=== PATIENT | female | born 1965 | race African-American/Black ===

== ENCOUNTER 2018-08-31 23:47 | Emergency (ER) | payer BC ==
[2018-09-01] MEDS ORDERED: METOCLOPRAMIDE HCL INJ/PF 10 MG/2 ML SDV IV ONE (01:01)
--- NOTE | 2018-09-01 01:01 | ER Document Report ---
ED Headache - General Chief Complaint: Headache Stated Complaint: HEADACHE Time Seen by Provider: 09/01/18 00:49 Notes: Patient is a 53-year-old female that comes to the emergency department for chief complaint of a headache. She states that the headache started at 10 PM, she states it is a sharp pain in the left side of her head, she has photophobia, nausea, and she vomited once. She denies injury. She denies history of migraines, frequent headaches, or history of the same. She denies fever or chills. She states headache was bad at first and intermittently improves and then worsens. Past medical history of hyperlipidemia and she takes dietary pills but these are not new. She smokes, she denies alcohol, denies recreational drugs. Denies any medical history otherwise. - Related Data Allergies/Adverse Reactions: No Known Allergies Allergy (Verified 08/31/18 23:50) Past Medical History - General Information source: Patient - Social History Smoking Status: Current Every Day Smoker Frequency of alcohol use: None Lives with: Family Family History: Reviewed & Not Pertinent Patient has suicidal ideation: No Patient has homicidal ideation: No - Past Medical History Cardiac Medical History: Reports: Hx Hypercholesterolemia Denies: Hx Hypertension Pulmonary Medical History: Reports: Hx COPD Renal/ Medical History: Denies: Hx Peritoneal Dialysis - Immunizations Immunizations up to date: Yes Hx Diphtheria, Pertussis, Tetanus Vaccination: Yes Review of Systems - Review of Systems Constitutional: No symptoms reported EENT: No symptoms reported Cardiovascular: No symptoms reported Respiratory: No symptoms reported Gastrointestinal: See HPI Genitourinary: No symptoms reported Female Genitourinary: No symptoms reported Musculoskeletal: No symptoms reported Skin: No symptoms reported Hematologic/Lymphatic: No symptoms reported Neurological/Psychological: See HPI Physical Exam - Vital signs Vitals: Temp Pulse Resp BP Pulse Ox 98.1 F 80 18 132/91 H 98 08/31/18 23:48 08/31/18 23:48 08/31/18 23:48 08/31/18 23:48 08/31/18 23:48 - Notes Notes: GENERAL: Patient squinting her eyes, responds slightly sluggishly, appears to be mildly uncomfortable. No severe distress. HEAD: Normocephalic, atraumatic. EYES: Pupils equal, round, and reactive to light. Mild photophobia. Extraocular movements intact. ENT: Oral mucosa moist, tongue midline. Oropharynx unremarkable. Airway patent. Nares patent, no nasal septal hematoma, TM's intact. NECK: Full range of motion. Supple. Trachea midline. LUNGS: Clear to auscultation bilaterally, no wheezes, rales, or rhonchi. No respiratory distress. HEART: Regular rate and rhythm. No murmur ABDOMEN: Soft, non-tender. Non-distended. Bowel sounds present in all 4 quadrants. GENITOURINARY: Deferred EXTREMITIES: Moves all 4 extremities spontaneously. No edema, normal radial and dorsalis pedis pulses bilaterally. No cyanosis. BACK: no cervical, thoracic, lumbar midline tenderness. No saddle anesthesia, normal distal neurovascular exam. NEUROLOGICAL: Alert and oriented x3. Normal speech. [cranial nerves II through XII grossly intact]. PSYCH: Normal affect, normal mood. SKIN: Warm, dry, normal turgor. No rashes or lesions noted. Course - Re-evaluation Re-evalutation: Because patient appeared uncomfortable, had a severe headache that prompted an emergency department visit, and she has no history of headaches, despite patient having typical migraine symptoms after discussion with patient decision was made to proceed with CAT scan to rule out subarachnoid hemorrhage. Patient is within the 6-hour window. CAT scan of the head unremarkable. No acute findings. Patient does not have any neurological deficits. Patient was given Reglan IV. On reevaluation patient sleeping, easily aroused. Headache is completely resolved. Asking to go home. Because of complete resolution of symptoms I have low suspicion of sinus venous thrombosis, intracranial hemorrhage, or meningitis. No nuchal rigidity or fever. Discussed follow-up and return precautions. Patient and significant other state understanding and agreement. - Vital Signs Vital signs: Temp Pulse Resp BP Pulse Ox 98.1 F 83 16 104/64 100 09/01/18 02:24 09/01/18 02:24 09/01/18 02:24 09/01/18 02:24 09/01/18 02:24 Discharge - Discharge Clinical Impression: Headache Qualifiers: Headache type: unspecified Headache chronicity pattern: acute headache Intractability: not intractable Qualified Code(s): R51 - Headache Condition: Stable Disposition: HOME, SELF-CARE Additional Instructions: Your symptoms and response to treatment are most consistent with a migraine. Your cat scan did not show any concerning findings. Rest, take Tylenol or ibuprofen for headaches, stay hydrated. Follow up with Primary Care for additional evaluation and management. Return for any concerning symptoms - severe returned headache, vomiting, fever, numbness, visual changes, or any other concerning symptoms. Forms: Return to Work, Treatment of Relative/Child
--- NOTE | 2018-09-01 02:08 | RADIOLOGY REPORT (SQ) ---
EXAM DESCRIPTION: CT HEAD WITHOUT IV CONTRAST COMPLETED DATE/TME: 09/01/2018 00:56 CLINICAL HISTORY: 53 years, Female, new onset severe headache, vomiting COMPARISON: None. TECHNIQUE: 203 Images stored on PACS. All CT scanners at this facility use dose modulation, iterative reconstruction, and/or weight based dosing when appropriate to reduce radiation dose to as low as reasonably achievable (ALARA). [facility]: Dose Right [facility]: CareDose [facility]: Dose Right [facility]: Teradose 4D [facility]: Smart Technologies LIMITATIONS: None. FINDINGS: Globes are intact. Paranasal sinuses and mastoid air cells are unremarkable. No displaced or depressed skull fracture. No intra or extra-axial hemorrhage. CT is limited for evaluation of acute infarct. No CT evidence for large or territorial acute infarct. No mass or midline shift. IMPRESSION: Negative exam TECHNICAL DOCUMENTATION: Quality ID # [id number]: Final reports with documentation of one or more dose reduction techniques (e.g., Automated exposure control, adjustment of the mA and/or kV according to patient size, use of iterative reconstruction technique) copyright 2011 [employer]- All Rights Reserved
[2018-09-01 02:25] VITALS: BP 104/64
== END 2018-09-01 02:53 | disposition home or self-care (01) ==
LOC: ER 23:47
DX: R51 Headache (principal); F17.200 Nicotine dependence, unspecified, uncomplicated; J44.9 Chronic obstructive pulmonary disease, unspecified
CPT/HCPCS: 99284; 96374; 70450; J2765

== ENCOUNTER → 2018-10-06 | Outpatient (CLI) | payer BC ==
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
== END ==
LOC: EDSTATUS 09:02 → WI 11:09
PROVIDERS: ATTEND Internal Medicine Medical Oncology
DX: N63.10 Unspecified lump in the right breast, unspecified quadrant (principal)

== ENCOUNTER 2018-10-08 05:24 | Emergency (ER) | payer OTHER, BC ==
[2018-10-08] MEDS ORDERED: LIDOCAINE 5% (700 MG) TRANSDERMAL ADH..PATCH TP ONE (06:59)
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
[2018-10-08 08:37] VITALS: BP 147/106
== END 2018-10-08 08:37 | disposition home or self-care (01) ==
LOC: ER 05:24
DX: S16.1XXA Strain of muscle, fascia and tendon at neck level, initial encounter (principal); M25.511 Pain in right shoulder; V43.62XA Car passenger injured in collision with other type car in traffic accident, initial encounter; F17.200 Nicotine dependence, unspecified, uncomplicated; J44.9 Chronic obstructive pulmonary disease, unspecified; M54.2 Cervicalgia; M54.9 Dorsalgia, unspecified; G89.29 Other chronic pain; Z79.891 Long term (current) use of opiate analgesic; Z79.899 Other long term (current) drug therapy
CPT/HCPCS: 72050; 99283

== ENCOUNTER 2018-11-01 07:32 | Day surgery (SDC) | payer BC, OTHER ==
[2018-10-22 11:47] LABS: APPEARANCE,URINE CLEAR; BILIRUBIN,URINE NEGATIVE (NEGATIVE); COLOR,URINE YELLOW; GLUCOSE, URINE NEGATIVE (NEGATIVE); KETONES,URINE NEGATIVE (NEGATIVE); LEUKOCYTE ESTERASE,URINE NEGATIVE (NEGATIVE); NITRITE,URINE NEGATIVE (NEGATIVE); PROTEIN,URINE NEGATIVE (NEGATIVE); URINE SPECIFIC GRAVITY 1.019; UROBILINOGEN,URINE NEGATIVE mg/dL (<2.0)
[2018-10-22 12:00] LABS: HEMATOCRIT 41.8 % (36.0-47.0); HEMOGLOBIN 13.6 g/dL (12.0-15.5); MEAN CORPUSCULAR HEMOGLOBIN 23.7 pg (27.0-33.4); MEAN CORPUSCULAR HGB CONC 32.6 g/dL (32.0-36.0); MEAN CORPUSCULAR VOLUME 73 fl (80-97); PLATELET COUNT 511 10^3/uL (150-450); RED BLOOD COUNT 5.75 10^6/uL (3.72-5.28); RED CELL DISTRIBUTION WIDTH 18.3 % (11.5-14.0); WHITE BLOOD COUNT 23.7 10^3/uL (4.0-10.5)
--- NOTE | 2018-10-22 12:07 | RADIOLOGY REPORT (SQ) ---
EXAM DESCRIPTION: CHEST PA/LATERAL COMPLETED DATE/TIME: 10/22/2018 11:48 am REASON FOR STUDY: PRE-OP COMPARISON: None. EXAM PARAMETERS: NUMBER OF VIEWS: two views TECHNIQUE: Digital Frontal and Lateral radiographic views of the chest acquired. RADIATION DOSE: NA LIMITATIONS: none FINDINGS: LUNGS AND PLEURA: Bibasilar linear bandlike scarring is present. No fluffy alveolar infiltrates worrisome for pulmonary edema or pneumonia. No pleural effusions. No pneumothorax. MEDIASTINUM AND HILAR STRUCTURES: No masses or contour abnormalities. HEART AND VASCULAR STRUCTURES: Heart normal size. No evidence for failure. BONES: No acute findings. HARDWARE: None in the chest. OTHER: No other significant finding. IMPRESSION: Bandlike bibasilar scarring or atelectasis TECHNICAL DOCUMENTATION: JOB ID: [id number] [employer]- All Rights Reserved Reading location - IP/workstation name: [email or web address]
[2018-10-22 12:24] LABS: ANION GAP 12 (5-19); BLOOD UREA NITROGEN 14 mg/dL (7-20); CALCIUM 10.3 mg/dL (8.4-10.2); CARBON DIOXIDE 27 mmol/L (22-30); CHLORIDE 106 mmol/L (98-107); GLUCOSE 82 mg/dL (75-110); POTASSIUM 4.3 mmol/L (3.6-5.0); SODIUM 145.2 mmol/L (137-145)
--- NOTE | 2018-10-22 22:02 | EKG REPORT ---
SEVERITY:- NORMAL ECG - SINUS RHYTHM : Confirmed by: Sade Jimenes 22-Oct-2018 22:01:41
[~2018-11-01 07:32] MED LIST: BUPIVACAINE HCL 0.25 % INJ/PF (2.5 MG/1 ML) 30 ML VIAL ONE; CEFAZOLIN 1 GM/D5W RTU 1 GM/50 ML RTUPB IV ONE; CEFAZOLIN 2 GM/D5W RTU 2 GM/50 ML RTUPB IV PRN; LACTATED RINGERS 1000 ML IV PRN; LIDOCAINE 0.5% INJ-PF (5 MG/ML) 50 ML SDV SUBCUT PRN; LIDOCAINE 1%/EPINEPHRINE INJ 20 ML VIAL ONE
[2018-11-01] MEDS ORDERED: ACETAMINOPHEN 1,000 MG/100 ML RTUPB IV ONE (08:04)
[2018-11-01] MEDS ORDERED: FENTANYL CITRATE INJ/PF 100 MCG/2 ML AMPUL ONE (08:04)
[2018-11-01] MEDS ORDERED: LIDOCAINE 2% INJ-PF (100 MG/5 ML) SYRINGE ONE (08:04)
[2018-11-01] MEDS ORDERED: PROPOFOL INJ 200 MG/20 ML VIAL IV ONE (08:04)
[2018-11-01] MEDS ORDERED: MIDAZOLAM 2 MG/2 ML INJ ONE (08:04)
[2018-11-01] MEDS ORDERED: ONDANSETRON HCL INJ/PF 4 MG/2 ML SDV ONE (08:04)
[2018-11-01] MEDS ORDERED: DIPHENHYDRAMINE HCL 50 MG/ML VIAL IV PRN (09:03)
[2018-11-01] MEDS ORDERED: PROMETHAZINE HCL INJ 25 MG/1 ML VIAL IV PRN ×2 (09:03)
[2018-11-01] MEDS ORDERED: ONDANSETRON HCL INJ/PF 4 MG/2 ML SDV IV PRN (09:03)
[2018-11-01] MEDS ORDERED: MEPERIDINE HCL/PF INJ 25 MG/1 ML DISP.SYRIN IV PRN (09:03)
[2018-11-01] MEDS ORDERED: FENTANYL CITRATE INJ/PF 100 MCG/2 ML AMPUL IV PRN ×3 (09:03)
--- NOTE | 2018-11-01 09:23 | Discharge Summary ---
Discharge Summary (SDC) - Discharge Final Diagnosis: Left dorsal wrist ganglion Date of Surgery: 11/01/18 Discharge Date: 11/01/18 Condition: Good Prescriptions: Oxycodone HCl/Acetaminophen [Percocet 5-325 mg Tablet] 1 tab PO Q6 PRN #25 tab PRN Reason: Referrals: BRAYDEN MANN MD [Primary Care Provider] - Discharge Diet: As Tolerated, Regular Respiratory Treatments at Home: Deep Breathing/Coughing Discharge Activity: Balance Activity w/Rest, No tub bath Home Care Assistance: None Needed Report the Following to Your Physician Immediately: Shortness of Breath, Fever over 101 Degrees, Drainage-Foul Smelling
--- NOTE | 2018-11-01 09:25 | Operative Report ---
Operative Report DATE OF SURGERY: 11/01/18 PREOPERATIVE DIAGNOSIS: Left dorsal wrist ganglion OPERATION: Excision left dorsal wrist ganglion SURGEON: DEANGELO PERAZA ANESTHESIA: LMAC TISSUE REMOVED OR ALTERED: Ganglion to pathology ESTIMATED BLOOD LOSS: Minimal PROCEDURE: The patient supine on the operative table left upper extremities prepped and draped in sterile fashion. The skin overlying the fourth dorsal extensor compartment at the radiocarpal joint is insufflated with combination of Marcaine, Xylocaine, and epinephrine. Subsequently a 1-1/2 cm transverse inci aline was made over the dorsal ganglion and blunt ICU dissection was used to carry the incision down to the radiocarpal joint. The ganglion is transected at its base. Wound is irrigated. Hemostasis obtained with bipolar cautery. The wound is then closed using interrupted Monocryl suture followed by Steri-Strips and Dermabond. A sterile compressive dressing is applied and the patient's return to the PACU
[2018-11-01] MEDS ORDERED: OXYCODONE-ACETAMINOPHEN 5-325 MG TABLET PO PRN (10:22)
[2018-11-01 11:44] VITALS: BP 120/89
== END 2018-11-01 11:35 | disposition home or self-care (01) ==
LOC: OROUT 07:32
PROVIDERS: ATTEND Orthopaedic Surgery
DX: M67.432 Ganglion, left wrist (principal); E78.00 Pure hypercholesterolemia, unspecified; J45.909 Unspecified asthma, uncomplicated; Z79.891 Long term (current) use of opiate analgesic; Z01.818 Encounter for other preprocedural examination
CPT/HCPCS: 93010; 93005; 36415; 85027; 81025; 80048; 81001; 88304 ×2; 71046; 25111; J2250; J0690; J3010; J3490; J2001; J2405; J2704; J0131; 1810

== ENCOUNTER 2019-09-17 15:22 | Emergency (ER) | payer BC, OTHER ==
[2019-09-17] MEDS ORDERED: PREDNISONE 20 MG TABLET PO ONE (16:40)
[2019-09-17] MEDS ORDERED: IPRATROPIUM/ALBUTEROL 0.5-2.5 MG/3 ML AMPUL NEB ONE ×2 (16:40→19:54)
--- NOTE | 2019-09-17 16:43 | ER Document Report ---
ED Medical Screen (RME) - General Chief Complaint: Shortness Of Breath Stated Complaint: SHORT OF BREATH,CONGESTION Time Seen by Provider: 09/17/19 16:37 Primary Care Provider: BRAYDEN MANN MD [Primary Care Provider] - Follow up as needed TRAVEL OUTSIDE OF THE [place] IN LAST 30 DAYS: No - HPI Notes: 09/17/19 16:41 54 year old female with history of tobacco use to the ER with C/O one week of cough,chest tightness, wheezing. States she can hardly catch her breath. Denies fevers, endorses chills. Denies sweating, nausea, vomiting. Admits to some neck pain. Denies sore throat or ear pain. Denies sick contact. I have performed a brief medical screening exam on the patient and determined that they will need further management by mainside provider. I have placed ini tial orders to expedite patient's care. - Related Data Allergies/Adverse Reactions: No Known Allergies Allergy (Verified 09/17/19 16:37) Past Medical History - Past Medical History Cardiac Medical History: Reports: Hx Heart Attack - August 2016, Hx Hypercholesterolemia, Hx Hypertension Denies: Hx Coronary Artery Disease Pulmonary Medical History: Reports: Hx Asthma, Hx COPD Denies: Hx Bronchitis, Hx Pneumonia Neurological Medical History: Denies: Hx Cerebrovascular Accident, Hx Seizures Renal/ Medical History: Denies: Hx Peritoneal Dialysis Musculoskeltal Medical History: Denies Hx Arthritis, Reports Hx Muscle Spasm Past Surgical History: Reports: Hx Cardiac Catheterization - 2016, Hx Gynecologic Surgery - Uterine ablation - Immunizations Immunizations up to date: Yes Hx Diphtheria, Pertussis, Tetanus Vaccination: Yes Physical Exam - Vital signs Vitals: Temp Pulse Resp BP Pulse Ox 98.3 F 111 H 18 122/96 H 93 09/17/19 15:35 09/17/19 15:35 09/17/19 15:35 09/17/19 15:35 09/17/19 15:35 Course - Vital Signs Vital signs: Temp Pulse Resp BP Pulse Ox 98.3 F 111 H 18 122/96 H 93 09/17/19 15:35 09/17/19 15:35 09/17/19 15:35 09/17/19 15:35 09/17/19 15:35 Doctor's Discharge - Discharge Referrals: BRAYDEN MANN MD [Primary Care Provider] - Follow up as needed
--- NOTE | 2019-09-17 17:59 | RADIOLOGY REPORT (SQ) ---
EXAM DESCRIPTION: CHEST 2 VIEWS COMPLETED DATE/TIME: 09/17/2019 5:42 pm REASON FOR STUDY: cough, wheezing, chest tightness COMPARISON: 10/22/2018 TECHNIQUE: Frontal and lateral radiographic views of the chest acquired. NUMBER OF VIEWS: Two view. LIMITATIONS: None. FINDINGS: LUNGS AND PLEURA: No pneumothorax. No consolidation or pleural effusion. Similar chronic right basilar scarring. MEDIASTINUM AND HILAR STRUCTURES: Stable. HEART AND VASCULAR STRUCTURES: Stable. BONES: No acute findings. HARDWARE: None in the chest. OTHER: No other significant finding. IMPRESSION: NO ACUTE FINDINGS. TECHNICAL DOCUMENTATION: JOB ID: [id number] 2010 [employer]- All Rights Reserved Reading location - IP/workstation name: [email or web address]
--- NOTE | 2019-09-17 20:58 | ER Document Report ---
ED Respiratory Problem - General Chief Complaint: Shortness Of Breath Stated Complaint: SHORT OF BREATH,CONGESTION Time Seen by Provider: 09/17/19 16:37 Primary Care Provider: JYOTSNA BEDOYA MD [ACTIVE STAFF] - Follow up in 3-5 days BRAYDEN MANN MD [Primary Care Provider] - Follow up in 3-5 days Notes: Patient is a 54-year-old female who presents the emergency department with a chief complaint of cough, chest tightness, and wheezing that she has had for about the past month. States that she has a hard time getting a good deep breath in. Patient is a current every day smoker. She denies any fevers, body aches, chills, or any other symptoms. TRAVEL OUTSIDE OF THE [place] IN LAST 30 DAYS: No - Related Data Allergies/Adverse Reactions: No Known Allergies Allergy (Verified 09/17/19 16:37) Past Medical History - General Information source: Patient - Social History Smoking Status: Current Every Day Smoker Family History: DM, Hypertension, Reviewed & Not Pertinent, Other Patient has suicidal ideation: No Patient has homicidal ideation: No - Past Medical History Cardiac Medical History: Reports: Hx Heart Attack - August 2016, Hx Hypercholesterolemia, Hx Hypertension Denies: Hx Coronary Artery Disease Pulmonary Medical History: Reports: Hx Asthma, Hx COPD Denies: Hx Bronchitis, Hx Pneumonia Neurological Medical History: Denies: Hx Cerebrovascular Accident, Hx Seizures Renal/ Medical History: Denies: Hx Peritoneal Dialysis Musculoskeletal Medical History: Denies Hx Arthritis, Reports Hx Muscle Spasm Past Surgical History: Reports: Hx Cardiac Catheterization - 2016, Hx Gynecologic Surgery - Uterine ablation - Immunizations Immunizations up to date: Yes Hx Diphtheria, Pertussis, Tetanus Vaccination: Yes Review of Systems - Review of Systems Notes: REVIEW OF SYSTEMS: CONSTITUTIONAL : Denies recent illness. Denies recent unintentional weight loss. Denies fever, chills, or sweats. EENT: Denies eye, ear, throat, or mouth pain, discharge, or symptoms. Denies nasal or sinus congestion. CARDIOVASCULAR: Denies chest pain. RESPIRATORY: See HPI. GASTROINTESTINAL: Denies nausea, vomiting, and diarrhea. Denies abdominal pain. Denies constipation. GENITOURINARY: Denies difficulty urinating, burning, blood in urine, urgency or frequency. MUSCULOSKELETAL: Denies neck and back pain. Denies joint pain or swelling. SKIN: Denies rash, itchiness, or lesions HEMATOLOGIC : Denies easy bruising or bleeding. LYMPHATIC: Denies swollen, painful, enlarged glands. NEUROLOGICAL: Denies no numbness or tingling denies weakness. Denies headache. Denies altered mental status. Denies alteration in speech. PSYCHIATRIC: Denies stress, anxiety, alteration in sleep patterns, or depression. All other systems reviewed and negative. Physical Exam - Vital signs Vitals: Temp Pulse Resp BP Pulse Ox 98.3 F 111 H 18 122/96 H 93 09/17/19 15:35 09/17/19 15:35 09/17/19 15:35 09/17/19 15:35 09/17/19 15:35 - Notes Notes: PHYSICAL EXAMINATION: GENERAL: Appears well, healthy, well-nourished, no acute distress. HEAD: Normocephalic, atraumatic. EYES: PERRL, conjunctiva normal, all extraocular movements intact, sclera nonicteric ENT: Moist mucous membranes. NECK: Supple, no noticeable swelling, redness, rash. Normal range of motion. LUNGS: Equal breath sounds bilaterally and clear to auscultation. No wheezes rales or rhonchi. CARDIOVASCULAR: S1-S2, regular rate, regular rhythm. Radial pulses 2+, normal. ABDOMEN: Normoactive bowel sounds. Soft, nontender, no guarding, no rebound tenderness, and no masses palpated. EXTREMITIES: Normal strength and range of motion, no pitting or edema. No cyanosis. NEUROLOGICAL: Moves all extremities upon command. Strength 5/5 in all extremities. PSYCH: Normal mood, normal affect. SKIN: Warm, dry. No rash, lesions, ulcerations noted. Normal skin turgor. Course - Re-evaluation Re-evalutation: 09/17/19 21:03 Patient's chest x-ray ordered in triage is unremarkable. Patient states that she feels better after receiving 2 DuoNeb treatments. She is mildly tachycardic, mostly likely because she received her breathing treatments. I instructed her to follow-up with her primary care provider and academic support specialist. Patient states that she had some oxygen delivered to her home and I advised her that she may need to be on her oxygen. I instructed her to cut back on her smoking. She is in agreement with this plan. A very low suspicion for a pulmonary emboli, acute NC, or any life-threatening etiology at this time. Follow-up precautions were given. Verbal discharge instructions were given to the patient. They verbalized understanding. They are stable for discharge. - Vital Signs Vital signs: Temp Pulse Resp BP Pulse Ox 98.3 F 111 H 18 122/96 H 93 09/17/19 15:35 09/17/19 15:35 09/17/19 20:00 09/17/19 15:35 09/17/19 20:00 Discharge - Discharge Clinical Impression: Shortness of breath Condition: Stable Disposition: HOME, SELF-CARE Additional Instructions: You are seen today in the emergency department for shortness of breath and difficulty breathing. You have been given a breathing treatment here in the emergency department. Please continue your albuterol inhaler every 4-6 hours as needed. You are also being started on steroids. Please make sure you finish them. Please follow-up with your primary care provider and your academic support specialist in regards to this visit. Prescriptions: Prednisone [Deltasone 20 mg Tablet] 3 tab PO DAILY 5 Days #15 tablet Forms: Smoking Cessation Education Referrals: BRAYDEN MANN MD [Primary Care Provider] - Follow up in 3-5 days JYOTSNA BEDOYA MD [ACTIVE STAFF] - Follow up in 3-5 days
[2019-09-17 21:21] VITALS: BP 143/95
--- NOTE | 2019-09-17 22:53 | EKG REPORT ---
SEVERITY:- NORMAL ECG - SINUS RHYTHM : Confirmed by: Francisco Winn MD 17-Sep-2019 22:52:35
== END 2019-09-17 21:21 | disposition home or self-care (01) ==
LOC: ER 15:22
DX: R06.02 Shortness of breath (principal); R09.81 Nasal congestion; R07.9 Chest pain, unspecified; R06.2 Wheezing; F17.200 Nicotine dependence, unspecified, uncomplicated; E78.00 Pure hypercholesterolemia, unspecified; I10 Essential (primary) hypertension; I25.2 Old myocardial infarction
CPT/HCPCS: 93005; 94640 ×2; 99285; 71046; 93010; J7512; J7620

== ENCOUNTER 2019-09-28 12:20 | Emergency (ER) | payer BC ==
[2019-09-28 13:37] LABS: ABSOLUTE BASOPHILS # (AUTO) 0.1 10^3/uL (0.0-0.2); ABSOLUTE EOSINOPHILS # (AUTO) 0.4 10^3/uL (0.0-0.6); ABSOLUTE LYMPHOCYTES (AUTO) 3.8 10^3/uL (0.5-4.7); ABSOLUTE MONOCYTES (AUTO) 1.4 10^3/uL (0.1-1.4); BASOPHILS % (AUTO) 0.7 % (0-2); EOSINOPHILS % (AUTO) 2.1 % (0-6); HEMATOCRIT 40.8 % (36.0-47.0); HEMOGLOBIN 13.6 g/dL (12.0-15.5); LYMPHOCYTES % (AUTO) 19.4 % (13-45); MEAN CORPUSCULAR HEMOGLOBIN 24.7 pg (27.0-33.4); MEAN CORPUSCULAR HGB CONC 33.4 g/dL (32.0-36.0); MEAN CORPUSCULAR VOLUME 74 fl (80-97); PLATELET COUNT 387 10^3/uL (150-450); SEGMENTED NEUTROPHILS % (AUTO) 70.8 % (42-78); TOTAL CELLS COUNTED % (AUTO) 100 %; WHITE BLOOD COUNT 19.7 10^3/uL (4.0-10.5)
--- NOTE | 2019-09-28 13:37 | RADIOLOGY REPORT (SQ) ---
EXAM DESCRIPTION: CHEST SINGLE VIEW COMPLETED DATE/TIME: 09/28/2019 12:20 pm REASON FOR STUDY: dyspnea COMPARISON: Chest radiograph, 09/17/2019 EXAM PARAMETERS: NUMBER OF VIEWS: One view. TECHNIQUE: Single frontal radiographic view of the chest acquired. RADIATION DOSE: NA LIMITATIONS: None. FINDINGS: LUNGS AND PLEURA: No opacities, masses or pneumothorax. No pleural effusion. MEDIASTINUM AND HILAR STRUCTURES: No masses. Contour normal. HEART AND VASCULAR STRUCTURES: Heart normal in size. Normal vasculature. BONES: No acute findings. HARDWARE: None in the chest. OTHER: No other significant finding. IMPRESSION: NO ACUTE RADIOGRAPHIC FINDING IN THE CHEST. TECHNICAL DOCUMENTATION: JOB ID: [id number] [employer]- All Rights Reserved Reading location - IP/workstation name: [email or web address]
[2019-09-28 13:58] LABS: ALBUMIN 3.9 g/dL (3.5-5.0); ALKALINE PHOSPHATASE 116 U/L (38-126); ANION GAP 10 (5-19); ASPARTATE AMINO TRANSFERASE 22 U/L (14-36); BILIRUBIN,DIRECT 0.3 mg/dL (0.0-0.4); BILIRUBIN,TOTAL 0.5 mg/dL (0.2-1.3); BLOOD UREA NITROGEN 11 mg/dL (7-20); CARBON DIOXIDE 25 mmol/L (22-30); CHLORIDE 106 mmol/L (98-107); GLUCOSE 104 mg/dL (75-110); POTASSIUM 3.9 mmol/L (3.6-5.0); TOTAL PROTEIN 7.4 g/dL (6.3-8.2)
[2019-09-28 14:38] VITALS: BP 160/108
[2019-09-28 15:44] LABS: APPEARANCE,URINE SLIGHTLY-CLOUDY; BILIRUBIN,URINE NEGATIVE (NEGATIVE); COLOR,URINE YELLOW; GLUCOSE, URINE NEGATIVE (NEGATIVE); KETONES,URINE NEGATIVE (NEGATIVE); LEUKOCYTE ESTERASE,URINE TRACE (NEGATIVE); NITRITE,URINE NEGATIVE (NEGATIVE); PROTEIN,URINE 30 mg/dL (NEGATIVE); URINE SPECIFIC GRAVITY 1.013; UROBILINOGEN,URINE NEGATIVE mg/dL (<2.0)
--- NOTE | 2019-09-28 18:36 | EKG REPORT ---
SEVERITY:- BORDERLINE ECG - SINUS TACHYCARDIA PROBABLE LEFT ATRIAL ABNORMALITY BORDERLINE T ABNORMALITIES, ANT-LAT LEADS : Confirmed by: Marianna Yu MD 28-Sep-2019 18:35:38
== END 2019-09-28 15:15 | disposition left against medical advice (07) ==
LOC: ER 12:20
DX: Z53.21 Procedure and treatment not carried out due to patient leaving prior to being seen by health care provider (principal); R06.02 Shortness of breath
CPT/HCPCS: 36415; 71045; 80053; 81001; 83605; 84484; 85025; 87040; 93005; 93010

== ENCOUNTER 2019-09-28 18:11 | Inpatient (IN) | payer BC ==
--- NOTE | 2019-09-28 18:42 | ER Document Report ---
ED Medical Screen (RME) - General Chief Complaint: Shortness Of Breath Stated Complaint: SHORTNESS OF BREATH Time Seen by Provider: 09/28/19 18:32 Primary Care Provider: BRAYDEN MANN MD [Primary Care Provider] - Follow up as needed Mode of Arrival: Ambulatory Information source: Patient Notes: 54-year-old female presented to ED because she was here earlier today and left without being seen because she had to go pick her grandchildren up. When she returned her blood pressure is 143/104 O2 sat is 89% pulse is 122 and temperature is 98.2. She does have a very moist cough. Very coarse lung sounds. She states she is still having chest pain. Patient is alert and oriented respirations are regular but her lungs are very coarse. I have greeted and performed a rapid initial assessment of this patient. A comprehensive ED assessment and evaluation of the patient, analysis of test results and completion of medical decision making process will be conducted by an additional ED providers. TRAVEL OUTSIDE OF THE [place] IN LAST 30 DAYS: No - Related Data Allergies/Adverse Reactions: No Known Allergies Allergy (Verified 09/17/19 16:37) Past Medical History - Past Medical History Cardiac Medical History: Reports: Hx Heart Attack - August 2016, Hx Hypercholesterolemia, Hx Hypertension Denies: Hx Coronary Artery Disease Pulmonary Medical History: Reports: Hx Asthma, Hx COPD Denies: Hx Bronchitis, Hx Pneumonia Neurological Medical History: Denies: Hx Cerebrovascular Accident, Hx Seizures Renal/ Medical History: Denies: Hx Peritoneal Dialysis Musculoskeltal Medical History: Denies Hx Arthritis, Reports Hx Muscle Spasm Past Surgical History: Reports: Hx Cardiac Catheterization - 2016, Hx Gy necologic Surgery - Uterine ablation - Immunizations Immunizations up to date: Yes Hx Diphtheria, Pertussis, Tetanus Vaccination: Yes Physical Exam - Vital signs Vitals: Temp Pulse Resp BP Pulse Ox 98.3 F 127 H 24 H 142/103 H 97 09/28/19 18:20 09/28/19 18:20 09/28/19 18:20 09/28/19 18:20 09/28/19 18:20 Course - Vital Signs Vital signs: Temp Pulse Resp BP Pulse Ox 98.2 F 124 H 24 H 143/104 H 89 L 09/28/19 18:38 09/28/19 18:38 09/28/19 18:38 09/28/19 18:38 09/28/19 18:38 Doctor's Discharge - Discharge Referrals: BRAYDEN MANN MD [Primary Care Provider] - Follow up as needed
--- NOTE | 2019-09-28 19:17 | RADIOLOGY REPORT (SQ) ---
EXAM DESCRIPTION: CHEST 2 VIEWS COMPLETED DATE/TIME: 09/28/2019 7:03 pm REASON FOR STUDY: Cough congestion COMPARISON: 09/28/2019 and 09/17/2019. EXAM PARAMETERS: NUMBER OF VIEWS: two views TECHNIQUE: Digital Frontal and Lateral radiographic views of the chest acquired. RADIATION DOSE: NA LIMITATIONS: none FINDINGS: LUNGS AND PLEURA: Chronic scarring in the lung bases. Slightly increased airspace disease in the left lung base. No pleural effusion. No pneumothorax. MEDIASTINUM AND HILAR STRUCTURES: No masses or contour abnormalities. HEART AND VASCULAR STRUCTURES: Heart normal size. No evidence for failure. BONES: No acute findings. HARDWARE: None in the chest. OTHER: No other significant finding. IMPRESSION: CHRONIC SCARRING IN THE LUNG BASES. POSSIBLE DEVELOPING INFILTRATE IN THE LEFT LUNG. TECHNICAL DOCUMENTATION: JOB ID: [id number] [employer]- All Rights Reserved Reading location - IP/workstation name: [email or web address]
[2019-09-28 19:37] LABS: HEMATOCRIT 45.4 % (36.0-47.0); MEAN CORPUSCULAR HEMOGLOBIN 24.5 pg (27.0-33.4); MEAN CORPUSCULAR HGB CONC 33.1 g/dL (32.0-36.0); MEAN CORPUSCULAR VOLUME 74 fl (80-97); PLATELET COUNT 454 10^3/uL (150-450); RED BLOOD COUNT 6.14 10^6/uL (3.72-5.28); RED CELL DISTRIBUTION WIDTH 17.2 % (11.5-14.0); WHITE BLOOD COUNT 21.8 10^3/uL (4.0-10.5)
[2019-09-28 19:48] LABS: ALBUMIN 4.6 g/dL (3.5-5.0); ALKALINE PHOSPHATASE 125 U/L (38-126); ANION GAP 13 (5-19); ASPARTATE AMINO TRANSFERASE 24 U/L (14-36); BILIRUBIN,DIRECT 0.1 mg/dL (0.0-0.4); BILIRUBIN,TOTAL 0.4 mg/dL (0.2-1.3); BLOOD UREA NITROGEN 11 mg/dL (7-20); CALCIUM 10.1 mg/dL (8.4-10.2); CARBON DIOXIDE 23 mmol/L (22-30); CHLORIDE 108 mmol/L (98-107); GLUCOSE 159 mg/dL (75-110); POTASSIUM 4.4 mmol/L (3.6-5.0); TOTAL PROTEIN 8.3 g/dL (6.3-8.2)
[2019-09-28 20:01] LABS: ABSOLUTE LYMPHOCYTES# (MANUAL) 1.7 10^3/uL (0.5-4.7); ABSOLUTE MONOCYTES # (MANUAL) 0.2 10^3/uL (0.1-1.4); BASOPHILS % (MANUAL) 0 % (0-2); EOSINOPHILS % (MANUAL) 0 % (0-6); LYMPHOCYTES % (MANUAL) 8 % (13-45); MONOCYTES % (MANUAL) 1 % (3-13); SEGMENTED NEUTROPHILS % (MAN) 91 % (42-78); TOTAL CELLS COUNTED 100
[2019-09-28 20:02] LABS: ANISOCYTOSIS 1+; OVALOCYTES SLIGHT; PLATELET COMMENT ADEQUATE; POIKILOCYTOSIS SLIGHT
[2019-09-28] MEDS ORDERED: IPRATROPIUM/ALBUTEROL 0.5-2.5 MG/3 ML AMPUL NEB ONE ×2 (22:40→23:10)
[2019-09-28] MEDS ORDERED: METHYLPREDNISOLONE INJ 125 MG/2 ML SDV IV ONE (22:40)
--- NOTE | 2019-09-28 23:02 | ER Document Report ---
ED General - General Chief Complaint: Shortness Of Breath Stated Complaint: SHORTNESS OF BREATH Time Seen by Provider: 09/28/19 18:32 Primary Care Provider: BRAYDEN MANN MD [Primary Care Provider] - Follow up as needed Mode of Arrival: Ambulatory Information source: Patient TRAVEL OUTSIDE OF THE [place] IN LAST 30 DAYS: No - HPI Onset: Other - over the last dew days Onset/Duration: Gradual Quality of pain: Burning Severity: Moderate Pain Level: 2 Associated symptoms: Chest pain, Productive cough, Shortness of breath, Other - palpitations Exacerbated by: Coughing, Other - exertion Relieved by: Denies Similar symptoms previously: No Recently seen / treated by doctor: No Notes: 54 year old female smoker with a history of COPD, HTN, HLD, prior MD here for several days of a productive cough, congestion, shortness of breath. 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 The is coughing and wheezing during my history taking. - Related Data Allergies/Adverse Reactions: No Known Allergies Allergy (Verified 09/28/19 18:42) Past Medical History - General Information source: Patient - Social History Smoking Status: Current Every Day Smoker Frequency of alcohol use: None Drug Abuse: None Family History: DM, Hypertension, Reviewed & Not Pertinent, Other Patient has suicidal ideation: No Patient has homicidal ideation: No - Past Medical History Cardiac Medical History: Reports: Hx Heart Attack - August 2016, Hx Hypercholesterolemia, Hx Hypertension Denies: Hx Coronary Artery Disease Pulmonary Medical History: Reports: Hx Asthma, Hx COPD Denies: Hx Bronchitis, Hx Pneumonia Neurological Medical History: Denies: Hx Cerebrovascular Accident, Hx Seizures Renal/ Medical History: Denies: Hx Peritoneal Dialysis Musculoskeletal Medical History: Denies Hx Arthritis, Reports Hx Muscle Spasm Past Surgical History: Reports: Hx Cardiac Catheterization - 2016, Hx Gynecologic Surgery - Uterine ablation - Immunizations Immunizations up to date: Yes Hx Diphtheria, Pertussis, Tetanus Vaccination: Yes Review of Systems - Review of Systems Constitutional: denies: Fever EENT: Nose congestion Cardiovascular: Chest pain Respiratory: Cough, Short of breath, Wheezing Gastrointestinal: No symptoms reported Genitourinary: No symptoms reported Female Genitourinary: No symptoms reported Musculoskeletal: No symptoms reported, Back pain Skin: No symptoms reported Hematologic/Lymphatic: No symptoms reported Neurological/Psychological: No symptoms reported -: Yes All other systems reviewed and negative Physical Exam - Vital signs Vitals: Temp Pulse Resp BP Pulse Ox 98.3 F 127 H 24 H 142/103 H 97 09/28/19 18:20 09/28/19 18:20 09/28/19 18:20 09/28/19 18:20 09/28/19 18:20 - Notes Notes: GENERAL: Not well-appearing, Patient is coughing and sounds congested when speaking, well-nourished. HEAD: Atraumatic, normocephalic. EYES: Pupils equal round and reactive to light, extraocular movements intact, sclera anicteric, conjunctiva are normal. ENT: Nares patent, oropharynx clear without exudates. Moist mucous membranes. NECK: Normal range of motion, supple without lymphadenopathy or JVD. LUNGS: Diffuse wheezing and Rhonchi HEART: Tachycardic, nomral rhythm without murmurs, rubs or gallops. ABDOMEN: Soft, nontender, normoactive bowel sounds. No guarding, no rebound. No masses appreciated. EXTREMITIES: Normal range of motion, no pitting or edema. No clubbing or cyanosis. NEUROLOGICAL: Cranial nerves II through XII grossly intact. Normal speech, normal gait. PSYCH: Normal mood, normal affect. SKIN: Warm, Dry, normal turgor, no rashes or lesions noted. Course - Re-evaluation Re-evalutation: 09/29/19 00:22 The patient is here for shortness of breath, cough, congestion. Xray shows possible early pneumonia. Patient treated with fluids, Rocephin, Azithromycin and admitted. Patient was tachycardic, hypoxic, and tachypnic on ER arrival. Apparently the patient was in the ER earlier in the day and left due to the long wait. Patient has a high WBC count and is tachycardic but she is not febrile and she does not have an elevated lactic acid. There was delay in giving antibiotics due to the extremely long waiting room times, the overall volume of the ER, and the fact that the patient left after she first checked into the ER. - Vital Signs Vital signs: Temp Pulse Resp BP Pulse Ox 98.2 F 124 H 22 H 150/115 H 91 L 09/28/19 18:39 09/28/19 18:39 09/28/19 22:46 09/28/19 22:46 09/28/19 22:46 - Laboratory Result Diagrams: 09/28/19 19:11 09/28/19 19:11 Laboratory results interpreted by me: 09/28/19 09/28/19 19:11 19:11 WBC 21.8 H RBC 6.14 H MCV 74 L MCH 24.5 L RDW 17.2 H Plt Count 454 H Seg Neuts % (Manual) 91 H Lymphocytes % (Manual) 8 L Monocytes % (Manual) 1 L Abs Neuts (Manual) 19.8 H Chloride 108 H Glucose 159 H Total Protein 8.3 H - Diagnostic Test Radiology reviewed: Image reviewed, Reports reviewed Critical Care Note - Critical Care Note Total time excluding time spent on procedures (mins): 31 Discharge - Discharge Clinical Impression: Pneumonia Qualifiers: Pneumonia type: due to unspecified organism Laterality: unspecified laterality Lung location: unspecified part of lung Qualified Code(s): J18.9 - Pneumonia, unspecified organism Condition: Fair Disposition: ADMITTED INPATIENT Admitting Provider: Yves (Hospitalist) Unit Admitted: Telemetry Referrals: BRAYDEN MANN MD [Primary Care Provider] - Follow up as needed
[2019-09-28] MEDS ORDERED: NORMAL SALINE 1000 ML 1,000 ML IV ONE (23:18)
[2019-09-28] MEDS: ALBUTEROL SULFATE 0.083% NEB 2.5 MG/3 ML AMPUL NEB SCH (23:20)
[2019-09-28] MEDS ORDERED: AZITHROMYCIN 250 MG TABLET PO ONE (23:21)
[2019-09-28] MEDS ORDERED: CEFTRIAXONE INJ 1000 MG VIAL IV ONE (23:21)
[2019-09-28 23:33] LABS: NT PRO BNP 97 pg/mL (<125)
[2019-09-28 23:34] LABS: TROPONIN I < 0.012 ng/mL
[2019-09-29] MEDS ORDERED: HYDRALAZINE HCL INJ/PF 20 MG/1 ML SDV IV PRN (00:19)
[2019-09-29] MEDS ORDERED: ACETAMINOPHEN 325 MG TABLET PO PRN (00:20)
[2019-09-29] MEDS ORDERED: IPRATROPIUM/ALBUTEROL 0.5-2.5 MG/3 ML AMPUL NEB PRN (00:20)
[2019-09-29] MEDS: ALBUTEROL SULFATE 0.083% NEB 2.5 MG/3 ML AMPUL NEB SCH (01:04)
[2019-09-29] MEDS: CHLORPHENIRAMINE MALEATE 4 MG TABLET PO SCH ×4 (01:15→17:41)
[2019-09-29] MEDS ORDERED: PREDNISONE 20 MG TABLET PO ONE (01:15)
[2019-09-29 01:55] LABS: ARTERIAL BLOOD BASE EXCESS -3.8 mmol/L; ARTERIAL BLOOD HCO3 22.1 mmol/L (20-24); ARTERIAL BLOOD O2 SATURATION 87.6 % (94-98); ARTERIAL BLOOD PCO2 43.2 mmHg (35-45); ARTERIAL BLOOD PH 7.33 (7.35-7.45); ARTERIAL BLOOD PO2 56.9 mmHg (80-100); ARTERIAL BLOOD TOTAL CO2 23.4 mmol/L (21-25)
[2019-09-29 01:56] LABS: ARTERIAL BLOOD FIO2 4L
[2019-09-29 04:28] LABS: APPEARANCE,URINE CLEAR; BILIRUBIN,URINE NEGATIVE (NEGATIVE); COLOR,URINE STRAW; GLUCOSE, URINE NEGATIVE (NEGATIVE); KETONES,URINE NEGATIVE (NEGATIVE); LEUKOCYTE ESTERASE,URINE NEGATIVE (NEGATIVE); NITRITE,URINE NEGATIVE (NEGATIVE); PROTEIN,URINE 100 mg/dL (NEGATIVE); URINE SPECIFIC GRAVITY 1.006; UROBILINOGEN,URINE NEGATIVE mg/dL (<2.0)
--- NOTE | 2019-09-29 05:47 | PDOC H&P ---
History of Present Illness Admission Date/PCP: 09/29/19 01:08 BRAYDEN MANN MD Patient complains of: Shortness of breath and nonproductive cough History of Present Illness: ELLA BELLO is a 54 year old female with a past medical history of chronic bronchitis, COPD, hypertension and obesity. Her only current medications are phentermine having run out of her other scheduled medications for unclear duration. She presents with 48 hours of subjective fever shortness of breath nonproductive cough. In the emergency department she is found to have hypertension, tachycardia, tachypnea with retractions, and anxious affect and left lower lobe infiltrate. She started on supplemental oxygen, empiric antibiotics, albuterol and Atrovent then referred to the hospitalist for admission. Patient denies recent pneumonia but admits to multiple coworkers from the [employer] with similar symptoms. Past Medical History Cardiac Medical History: Reports: Myocardial Infarction - August 2016, Hyperlipidema, Hypertension Denies: Coronary Artery Disease Pulmonary Medical History: Reports: Asthma, Chronic Obstructive Pulmonary Disease (COPD) Denies: Bronchitis, Pneumonia Neurological Medical History: Denies: Seizures Endocrine Medical History: Reports: Obesity Musculoskeltal Medical History: Denies: Arthritis Psychiatric Medical History: Denies: Tobacco Dependency Hematology: Reports: Anemia Past Surgical History Past Surgical History: Reports: Cardiac Catheterization - 2017 Social History Information Source: Patient Lives with: Spouse/Significant other Smoking Status: Current Every Day Smoker Electronic Cigarette use?: No Frequency of Alcohol Use: Social Hx Recreational Drug Use: No Drugs: None Hx Prescription Drug Abuse: No - Advance Directive Resuscitation Status: Full Code Family History Family History: DM, Hypertension, Other Parental Family History Reviewed: Yes Children Family History Reviewed: Yes Sibling(s) Family History Reviewed.: Yes Medication/Allergy Home Medications: Albuterol 2 puff IH Q4H 01/27/12 Tiotropium [place] [Spiriva Handihaler 18 mcg/dose (30 Dose)] 18 mcg IH DAILY 01/27/12 Cyclobenzaprine HCl [Flexeril 10 mg Tablet] 10 mg PO TIDP PRN #15 tab 01/03/15 Albuterol Sulfate [Proair HFA Inhalation Aerosol 8.5 gm MDI] 200 puff IH ASDIR PRN 10/21/18 Atorvastatin Calcium [Lipitor 10 mg Tablet] 10 mg PO QHS 10/21/18 Oxycodone HCl/Acetaminophen [Oxycodone-Acetaminophen 10-325] 1 each PO DAILY 10/21/18 Phentermine HCl 37.5 mg PO DAILY 10/21/18 Prednisone [Deltasone 20 mg Tablet] 20 mg PO DAILY 10/21/18 Oxycodone HCl/Acetaminophen [Percocet 5-325 mg Tablet] 1 tab PO Q6 PRN #25 tab 11/01/18 Prednisone [Deltasone 20 mg Tablet] 3 tab PO DAILY 5 Days #15 tablet 09/17/19 Allergies/Adverse Reactions: No Known Allergies Allergy (Verified 09/28/19 18:42) Review of Systems Constitutional: PRESENT: as per HPI, fatigue, fever(s). ABSENT: chills, headache(s), weight gain, weight loss Eyes: ABSENT: visual disturbances Ears: ABSENT: hearing changes Cardiovascular: ABSENT: chest pain, dyspnea on exertion, edema, orthropnea, palpitations Respiratory: PRESENT: as per HPI, cough, dyspnea. ABSENT: hemoptysis Gastrointestinal: ABSENT: abdominal pain, constipation, diarrhea, hematemesis, hematochezia, nausea, vomiting Genitourinary: ABSENT: dysuria, hematuria Musculoskeletal: ABSENT: joint swelling Integumentary: ABSENT: rash, wounds Neurological: ABSENT: abnormal gait, abnormal speech, confusion, dizziness, focal weakness, syncope Psychiatric: ABSENT: anxiety, depression, homidical ideation, suicidal ideation Endocrine: ABSENT: cold intolerance, heat intolerance, polydipsia, polyuria Hematologic/Lymphatic: ABSENT: easy bleeding, easy bruising Physical Exam Vital Signs: Temp Pulse Resp BP Pulse Ox 98.0 F 123 H 21 H 143/74 H 95 09/29/19 03:53 09/29/19 03:53 09/29/19 03:53 09/29/19 03:53 09/29/19 03:53 Intake & Output 09/27/19 09/28/19 09/29/19 11:59 11:59 11:59 Intake Total 1000 Balance 1000 Weight 77 kg General appearance: PRESENT: cooperative, disheveled, mild distress, well- developed, well-nourished Head exam: PRESENT: atraumatic, normocephalic Eye exam: PRESENT: conjunctiva pink, EOMI, PERRLA. ABSENT: scleral icterus Ear exam: PRESENT: normal external ear exam Mouth exam: PRESENT: moist, tongue midline Neck exam: ABSENT: carotid bruit, JVD, lymphadenopathy, thyromegaly Respiratory exam: PRESENT: accessory muscle use, prolonged expiratory phas, retraction, rhonchi, tachypnea. ABSENT: rales, wheezes Cardiovascular exam: PRESENT: RRR, tachycardia. ABSENT: diastolic murmur, rubs, systolic murmur Pulses: PRESENT: normal dorsalis pedis pul Vascular exam: PRESENT: normal capillary refill GI/Abdominal exam: PRESENT: normal bowel sounds, soft. ABSENT: distended, g uarding, mass, organolmegaly, rebound, tenderness Rectal exam: PRESENT: deferred Extremities exam: PRESENT: full ROM. ABSENT: calf tenderness, clubbing, pedal edema Neurological exam: PRESENT: alert, awake, oriented to person, oriented to place, oriented to time, oriented to situation, CN II-XII grossly intact. ABSENT: mo tor sensory deficit Psychiatric exam: PRESENT: appropriate affect, normal mood. ABSENT: homicidal ideation, suicidal ideation Skin exam: PRESENT: dry, intact, warm. ABSENT: cyanosis, rash Results Laboratory Results: 09/28/19 19:11 09/28/19 19:11 09/28/19 09/28/19 09/29/19 19:11 19:11 00:35 WBC 21.8 H RBC 6.14 H Hgb 15.0 Hct 45.4 MCV 74 L MCH 24.5 L MCHC 33.1 RDW 17.2 H Plt Count 454 H Seg Neutrophils % Not Reportable Carbonic Acid HCO3/H2CO3 Ratio ABG pH ABG pCO2 ABG pO2 ABG HCO3 ABG O2 Saturation ABG Base Excess FiO2 Sodium 143.5 Potassium 4.4 Chloride 108 H Carbon Dioxide 23 Anion Gap 13 BUN 11 Creatinine 0.87 Est GFR ( Amer) > 60 Glucose 159 H Lactic Acid 3.1 H Calcium 10.1 Total Bilirubin 0.4 AST 24 Alkaline Phosphatase 125 Total Protein 8.3 H Albumin 4.6 Urine Color Urine Appearance Urine pH Ur Specific [place] Urine Protein Urine Glucose (UA) Urine Ketones Urine Blood Urine Nitrite Ur Leukocyte Esterase Urine WBC (Auto) Urine RBC (Auto) 09/29/19 09/29/19 01:30 04:03 WBC RBC Hgb Hct MCV MCH MCHC RDW Plt Count Seg Neutrophils % Carbonic Acid 1.30 HCO3/H2CO3 Ratio 17:1 ABG pH 7.33 L ABG pCO2 43.2 ABG pO2 56.9 L ABG HCO3 22.1 ABG O2 Saturation 87.6 L ABG Base Excess -3.8 FiO2 4L Sodium Potassium Chloride Carbon Dioxide Anion Gap BUN Creatinine Est GFR ( Amer) Glucose Lactic Acid Calcium Total Bilirubin AST Alkaline Phosphatase Total Protein Albumin Urine Color STRAW Urine Appearance CLEAR Urine pH 5.0 Ur Specific [place] 1.006 Urine Protein 100 H Urine Glucose (UA) NEGATIVE Urine Ketones NEGATIVE Urine Blood LARGE H Urine Nitrite NEGATIVE Ur Leukocyte Esterase NEGATIVE Urine WBC (Auto) 1 Urine RBC (Auto) 4 09/28/19 19:11 Troponin I < 0.012 NT-Pro-B Natriuret Pep 97 Impressions: Chest X-Ray 09/28/19 18:42 IMPRESSION: CHRONIC SCARRING IN THE LUNG BASES. POSSIBLE DEVELOPING INFILTRATE IN THE LEFT LUNG. Assessment and Plan - Diagnosis (1) Hypertension Is this a current diagnosis for this admission?: Yes Plan: Discontinue phentermine, initiate trial of hydralazine. (2) COPD exacerbation Is this a current diagnosis for this admission?: Yes Plan: Secondary to #1, supplemental oxygen, flutter valve, ambulating pulse oximetry (3) Tobacco abuse Is this a current diagnosis for this admission?: Yes Plan: Tobacco cessation counseling performed, nicotine replacement options discussed (4) Anxiety Is this a current diagnosis for this admission?: Yes Plan: Discontinue phentermine, reassurance, consider trazodone (5) Pneumonia Qualifiers: Pneumonia type: due to unspecified organism Laterality: unspecified laterality Lung location: unspecified part of lung Qualified Code(s): J18.9 - Pneumonia, unspecified organism Is this a current diagnosis for this admission?: Yes Plan: Pneumonia care set deployed, complicated by coworkers at [employer] with similar findings. Trial antibiotic treatment of community-acquired pneumonia, follow-up blood culture and CBC. - Time Time Spent with patient: 25-34 minutes - Inpatient Certification Medical Necessity: Need Close Monitoring Due to Risk of Patient Decompensation
[2019-09-29] MEDS: HEPARIN SOD (PORCINE) 5,000 UNIT/ML 1 ML VIAL SUBCUT SCH ×3 (06:09→21:40)
[2019-09-29 06:48] LABS: HEMATOCRIT 39.6 % (36.0-47.0); MEAN CORPUSCULAR HGB CONC 32.3 g/dL (32.0-36.0); MEAN CORPUSCULAR VOLUME 74 fl (80-97); PLATELET COUNT 370 10^3/uL (150-450); RED BLOOD COUNT 5.33 10^6/uL (3.72-5.28); RED CELL DISTRIBUTION WIDTH 17.2 % (11.5-14.0); WHITE BLOOD COUNT 25.3 10^3/uL (4.0-10.5)
[2019-09-29 06:51] LABS: ANION GAP 12 (5-19); BLOOD UREA NITROGEN 12 mg/dL (7-20); CALCIUM 9.4 mg/dL (8.4-10.2); CARBON DIOXIDE 22 mmol/L (22-30); CHLORIDE 110 mmol/L (98-107); GLUCOSE 144 mg/dL (75-110); POTASSIUM 4.5 mmol/L (3.6-5.0)
[2019-09-29 07:20] LABS: HEMOGLOBIN 12.8 g/dL (12.0-15.5)
[2019-09-29 07:33] LABS: ABSOLUTE LYMPHOCYTES# (MANUAL) 3.3 10^3/uL (0.5-4.7); ABSOLUTE MONOCYTES # (MANUAL) 1.3 10^3/uL (0.1-1.4); BASOPHILS % (MANUAL) 0 % (0-2); EOSINOPHILS % (MANUAL) 0 % (0-6); LYMPHOCYTES % (MANUAL) 13 % (13-45); MONOCYTES % (MANUAL) 5 % (3-13); SEGMENTED NEUTROPHILS % (MAN) 82 % (42-78); TOTAL CELLS COUNTED 100
[2019-09-29 07:34] LABS: ANISOCYTOSIS 1+; HYPOCHROMASIA SLIGHT; TOXIC GRANULATION SLIGHT; TOXIC VACUOLATION PRESENT
[2019-09-29 07:35] LABS: PLATELET COMMENT ADEQUATE
[2019-09-29] MEDS: IPRATROPIUM/ALBUTEROL 0.5-2.5 MG/3 ML AMPUL NEB SCH ×3 (09:11→23:32)
[2019-09-29] MEDS: FLUTICASONE NASAL SPRAY 50 MCG/SPRY 120 SPRAY/16 GM NASL SCH ×2 (10:11→21:46)
[2019-09-29] MEDS: PREDNISONE 20 MG TABLET PO SCH ×2 (10:11→17:42)
--- NOTE | 2019-09-29 12:11 | Progress Note ---
Provider Note Provider Note: Patient was tachycardic, tachypneic, hypoxemic on initial presentation with diagnosis of pneumonia. She is afebrile and has been since admission. She is also not hypotensive. She has elevated lactic acid on admission. Patient does meet sepsis criteria, present on admission. Will order blood cultures as well as follow-up lactic acid. Patient also had leukocytosis on admission which worsened to 25,000 today likely secondary to 125 mg of Solu-Medrol that she received in the ED. 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 She has been covered with ceftriaxone and Zithromax for presumed community-acquired pneumonia however I will change the atypical coverage to doxycycline given patient's employment Current Medications Generic Name Dose Route Start Last Admin Trade Name Freq PRN Reason Stop Dose Admin Acetaminophen 650 mg 09/29/19 00:20 Tylenol 325 Mg Tablet PO 10/29/19 00:19 Q4HP PRN pain or temp greater than 101F Albuterol/Ipratropium 3 ml 09/29/19 00:20 Duoneb 3 Ml Ampul NEB 10/29/19 00:19 [id number] PRN SHORTNESS OF BREATH Albuterol/Ipratropium 3 ml 09/29/19 08:00 09/29/19 09:11 Duoneb 3 Ml Ampul NEB 10/29/19 07:59 3 ml RTQ8 ESTRELLA Administration Chlorpheniramine Maleate 4 mg 09/29/19 00:30 09/29/19 06:10 Chlor-Trimeton 4 Mg Tablet PO 09/29/19 18:31 4 mg Q6H ESTRELLA Administration Fluticasone Propionate 2 spray 09/29/19 10:00 09/29/19 10:11 Flonase Nasal Sublimity 50 Mcg/Sublimity 16 Gm NASL 10/29/19 09:59 2 spr Q12 ESTRELLA Administration Heparin Sodium (Porcine) 5,000 unit 09/29/19 06:00 09/29/19 06:09 Heparin Inj 5,000 Units/Ml 1 Ml Vial SUBCUT 10/29/19 05:59 Not Given Q8 ESTRELLA Hydralazine HCl 10 mg 09/29/19 00:19 Apresoline Inj/Pf 20 Mg/1 Ml Sdv IV 10/29/19 00:18 Q6HP PRN Sbp>160 Azithromycin 500 mg/ Dextrose 250 mls @ 250 mls/hr 09/29/19 22:00 IV 10/06/19 21:59 QHS ESTRELLA Ceftriaxone Sodium/Dextrose 1 gm in 50 mls @ 100 mls/hr 09/29/19 22:00 Rocephin Rtu 1 Gm/D5w 50 Ml Premix IV 10/06/19 21:59 QHS ESTRELLA Prednisone 20 mg 09/29/19 10:00 09/29/19 10:11 Deltasone 20 Mg Tablet PO 10/29/19 09:59 20 mg BID ESTRELAL Administration Sodium Chloride 2.5 ml 09/29/19 06:00 09/29/19 06:12 Saline Flush 2.5 Ml Monoject Prefil Syrin IV 10/29/19 05:59 2.5 ml Q8 ESTRELLA Administration Discontinued Medications Generic Name Dose Route Start Last Admin Trade Name Freq PRN Reason Stop Dose Admin Albuterol 2.5 mg 09/28/19 23:04 09/29/19 01:04 Ventolin 0.083% Neb 2.5 Mg/3 Ml Ampul NEB 09/28/19 23:20 2.5 mg Q15M ESTRELLA Administration Albuterol/Ipratropium 3 ml 09/28/19 22:40 09/28/19 23:20 Duoneb 3 Ml Ampul NEB 09/28/19 22:41 3 ml NOW ONE Administration Albuterol/Ipratropium 3 ml 09/28/19 23:10 09/29/19 01:04 Duoneb 3 Ml Ampul NEB 09/28/19 23:11 3 ml NOW ONE Administration Azithromycin 1,000 mg 09/28/19 23:21 09/29/19 01:07 Zithromax 250 Mg Tablet PO 09/28/19 23:22 1,000 mg NOW ONE Administration Ceftriaxone Sodium 1,000 mg 09/28/19 23:21 09/29/19 01:06 Rocephin Inj 1000 Mg Vial IV 09/28/19 23:22 1,000 mg IVBAG (ED) ONE Administration Sodium Chloride 1,000 mls @ 0 mls/hr 09/28/19 23:18 09/29/19 01:07 Nacl 0.9% 1000 Ml Iv Soln IV 09/28/19 23:19 Infused BOLUS ONE Infusion Wide Open Methylprednisolone Sodium Succinate 125 mg 09/28/19 22:40 09/28/19 23:20 Solu-Medrol Inj/Pf 125 Mg/2 Ml Sdv IV 09/28/19 22:41 125 mg NOW ONE Administration Prednisone 20 mg 09/29/19 01:15 09/29/19 01:15 Deltasone 20 Mg Tablet PO 09/29/19 01:16 20 mg NOW ONE Administration Abnormal - 24 hr 09/28/19 09/28/19 09/29/19 19:11 19:11 00:35 WBC 21.8 H RBC 6.14 H MCV 74 L MCH 24.5 L RDW 17.2 H Plt Count 454 H Seg Neuts % (Manual) 91 H Lymphocytes % (Manual) 8 L Monocytes % (Manual) 1 L Abs Neuts (Manual) 19.8 H ABG pH ABG pO2 ABG O2 Saturation Chloride 108 H Glucose 159 H Lactic Acid 3.1 H Total Protein 8.3 H Urine Protein Urine Blood 09/29/19 09/29/19 09/29/19 01:30 04:03 05:48 WBC 25.3 H RBC 5.33 H MCV 74 L MCH 24.0 L RDW 17.2 H Plt Count Seg Neuts % (Manual) 82 H Lymphocytes % (Manual) Monocytes % (Manual) Abs Neuts (Manual) 20.7 H ABG pH 7.33 L ABG pO2 56.9 L ABG O2 Saturation 87.6 L Chloride Glucose Lactic Acid Total Protein Urine Protein 100 H Urine Blood LARGE H 09/29/19 05:48 WBC RBC MCV MCH RDW Plt Count Seg Neuts % (Manual) Lymphocytes % (Manual) Monocytes % (Manual) Abs Neuts (Manual) ABG pH ABG pO2 ABG O2 Saturation Chloride 110 H Glucose 144 H Lactic Acid Total Protein Urine Protein Urine Blood Temp Pulse Resp BP Pulse Ox 98.0 F 120 H 18 143/74 H 96 09/29/19 03:53 09/29/19 09:11 09/29/19 09:11 09/29/19 03:53 09/29/19 09:11 Intake & Output 09/28/19 09/29/19 09/30/19 06:59 06:59 06:59 Intake Total 1260 Output Total 200 Balance 1060 Weight 77 kg Weight/Height Weight 77 kg Height 5 ft 4 in
[2019-09-29] MEDS ORDERED: DOXYCYCLINE HYCLATE 100 MG in DEXTROSE 5%-WATER 250 ML IV SCH (14:00)
[2019-09-29] MEDS: DOXYCYCLINE HYCLATE 100 MG in DEXTROSE 5%-WATER 250 ML IV SCH (16:39)
[2019-09-29] MEDS ORDERED: CEFTRIAXONE 1 GM/D5W RTU 1 GM/50 ML RTUPB IV SCH (22:00)
[2019-09-29] MEDS ORDERED: AZITHROMYCIN 500 MG in DEXTROSE 5%-WATER 250 ML IV SCH (22:00)
[2019-09-30] MEDS: DOXYCYCLINE HYCLATE 100 MG in DEXTROSE 5%-WATER 250 ML IV SCH ×2 (06:04→17:44)
[2019-09-30] MEDS: HEPARIN SOD (PORCINE) 5,000 UNIT/ML 1 ML VIAL SUBCUT SCH ×3 (06:05→22:33)
[2019-09-30 06:16] LABS: HEMATOCRIT 39.9 % (36.0-47.0); HEMOGLOBIN 12.9 g/dL (12.0-15.5); MEAN CORPUSCULAR HGB CONC 32.3 g/dL (32.0-36.0); MEAN CORPUSCULAR VOLUME 74 fl (80-97); PLATELET COUNT 399 10^3/uL (150-450); RED BLOOD COUNT 5.37 10^6/uL (3.72-5.28)
[2019-09-30 06:27] LABS: ANION GAP 10 (5-19); BLOOD UREA NITROGEN 21 mg/dL (7-20); CALCIUM 9.5 mg/dL (8.4-10.2); CARBON DIOXIDE 25 mmol/L (22-30); CHLORIDE 108 mmol/L (98-107); GLUCOSE 94 mg/dL (75-110); POTASSIUM 4.9 mmol/L (3.6-5.0)
[2019-09-30 07:01] LABS: WHITE BLOOD COUNT 33.1 10^3/uL (4.0-10.5)
[2019-09-30 07:02] LABS: ABSOLUTE MONOCYTES # (MANUAL) 3.6 10^3/uL (0.1-1.4); BASOPHILS % (MANUAL) 0 % (0-2); EOSINOPHILS % (MANUAL) 1 % (0-6); LYMPHOCYTES % (MANUAL) 18 % (13-45); MONOCYTES % (MANUAL) 11 % (3-13); SEGMENTED NEUTROPHILS % (MAN) 70 % (42-78); TOTAL CELLS COUNTED 100
[2019-09-30 07:05] LABS: ANISOCYTOSIS 1+; HYPOCHROMASIA SLIGHT; OVALOCYTES SLIGHT
[2019-09-30 07:06] LABS: PLATELET COMMENT ADEQUATE
[2019-09-30] MEDS: IPRATROPIUM/ALBUTEROL 0.5-2.5 MG/3 ML AMPUL NEB SCH ×2 (09:10→15:40)
[2019-09-30] MEDS: CEFEPIME HCL 2 GM in DEXTROSE 5%-WATER 50 ML IV SCH ×2 (09:59→22:33)
[2019-09-30] MEDS ORDERED: CEFEPIME 2 GM/D5W RTU 2 GM/50 ML RTUPB IV SCH (10:00)
[2019-09-30 11:08] LABS: HEMATOCRIT 40.3 % (36.0-47.0); HEMOGLOBIN 13.1 g/dL (12.0-15.5); MEAN CORPUSCULAR HEMOGLOBIN 24.2 pg (27.0-33.4); MEAN CORPUSCULAR HGB CONC 32.5 g/dL (32.0-36.0); MEAN CORPUSCULAR VOLUME 75 fl (80-97); PLATELET COUNT 400 10^3/uL (150-450); RED BLOOD COUNT 5.41 10^6/uL (3.72-5.28); RED CELL DISTRIBUTION WIDTH 17.2 % (11.5-14.0)
[2019-09-30] MEDS: FLUTICASONE NASAL SPRAY 50 MCG/SPRY 120 SPRAY/16 GM NASL SCH ×2 (11:09→22:33)
[2019-09-30] MEDS: PREDNISONE 20 MG TABLET PO SCH ×2 (11:09→17:45)
[2019-09-30 11:20] LABS: ANION GAP 7 (5-19); BLOOD UREA NITROGEN 19 mg/dL (7-20); CALCIUM 9.5 mg/dL (8.4-10.2); CARBON DIOXIDE 25 mmol/L (22-30); CHLORIDE 109 mmol/L (98-107); GLUCOSE 95 mg/dL (75-110); POTASSIUM 4.1 mmol/L (3.6-5.0); WHITE BLOOD COUNT 33.3 10^3/uL (4.0-10.5)
[2019-09-30 11:29] LABS: PATH REVIEW PATHOLOGIST REVIEWED
[2019-09-30 11:49] LABS: ABSOLUTE LYMPHOCYTES# (MANUAL) 6.7 10^3/uL (0.5-4.7); ABSOLUTE MONOCYTES # (MANUAL) 0.7 10^3/uL (0.1-1.4); BAND NEUTROPHILS % (MANUAL) 1 % (3-5); BASOPHILS % (MANUAL) 0 % (0-2); EOSINOPHILS % (MANUAL) 1 % (0-6); LYMPHOCYTES % (MANUAL) 20 % (13-45); MONOCYTES % (MANUAL) 2 % (3-13); SEGMENTED NEUTROPHILS % (MAN) 76 % (42-78); TOTAL CELLS COUNTED 100
[2019-09-30 11:50] LABS: ANISOCYTOSIS 1+; OVALOCYTES SLIGHT; PLATELET COMMENT ADEQUATE; POIKILOCYTOSIS SLIGHT; TARGET CELLS SLIGHT
--- NOTE | 2019-09-30 14:37 | RADIOLOGY REPORT (SQ) ---
EXAM DESCRIPTION: CT CHEST WITH COMPLETED DATE/TIME: 09/30/2019 2:17 pm REASON FOR STUDY: Respiratory Failure, PNA COMPARISON: 08/31/2017, same day radiograph TECHNIQUE: CT scan of the chest performed using helical scanning technique with dynamic intravenous contrast injection. Images reviewed with lung, soft tissue and bone windows. Reconstructed coronal and sagittal MPR and MIP images reviewed. All images stored on PACS. All CT scanners at this facility use dose modulation, iterative reconstruction, and/or weight based d osing when appropriate to reduce radiation dose to as low as reasonably achievable (ALARA). [facility]: Dose Right [facility]: CareDose [facility]: Dose Right [facility]: Teradose 4D [facility]: DuraSweeper CONTRAST TYPE AND DOSE: Omnipaque 350 RENAL FUNCTION: Creatinine 0.7 RADIATION DOSE: CT Rad equipment meets quality standard of care and radiation dose reduction techniq ues were employed. CTDIvol: 7.6 mGy. DLP: 284 mGy-cm. . LIMITATIONS: None. FINDINGS: LUNGS AND PLEURA: Mild linear bibasilar opacities, likely atelectasis or scarring. Additi onal trace ill-defined ground-glass opacities within the left lower lobe. No pleural effusion or pne umothorax. No new suspicious nodules or masses. HILAR AND MEDIASTINAL STRUCTURES: No identified masses or abnormal nodes. HEART AND VASCULAR STRUCTURES: No aneurysm. Normal heart size. Three-vessel coronary atherosclerosi s. Trace pericardial effusion. HARDWARE: None in the chest. UPPER ABDOMEN: Stable hepatic cyst. No acute findings. THYROID AND OTHER SOFT TISSUES: No masses. No adenopathy. BONES: No significant finding. OTHER: No other significant finding. IMPRESSION: Stable mild linear bibasilar opacities, likely atelectasis or scarring. No definite sup erimposed airspace disease or other evidence of acute cardiopulmonary process. TECHNICAL DOCUMENTATION: JOB ID: [id number] Quality ID # [id number]: Final reports with documentation of one or more dose reduction techniques (e.g., Au tomated exposure control, adjustment of the mA and/or kV according to patient size, use of iterative reconstruction technique) 2010 [employer]- All Rights Reserved Reading location - IP/workstation name: [email or web address]
--- NOTE | 2019-09-30 14:51 | EKG REPORT ---
SEVERITY:- OTHERWISE NORMAL ECG - SINUS TACHYCARDIA : Confirmed by: Marianna Yu MD 30-Sep-2019 14:50:03
--- NOTE | 2019-09-30 17:42 | PDOC PROGRESS REPORT ---
Subjective Progress Note for:: 09/30/19 Subjective:: Patient states she feels somewhat better. Breathing is improved. Denies any nausea vomiting or fever. Reason For Visit: COPD EXACERBATION C PNEUMONIA Physical Exam Vital Signs: Temp Pulse Resp BP Pulse Ox 97.1 F 105 H 18 124/83 96 09/30/19 11:18 09/30/19 15:43 09/30/19 15:43 09/30/19 11:18 09/30/19 15:43 Intake & Output 09/29/19 09/30/19 10/01/19 06:59 06:59 06:59 Intake Total 1260 1215 1020 Output Total 200 1300 Balance 1060 -85 1020 Weight 77 kg 77.8 kg General appearance: PRESENT: no acute distress, well-developed, well-nourished Head exam: PRESENT: atraumatic, normocephalic Eye exam: PRESENT: conjunctiva pink, EOMI, PERRLA. ABSENT: scleral icterus Ear exam: PRESENT: normal external ear exam Mouth exam: PRESENT: moist, tongue midline Neck exam: ABSENT: carotid bruit, JVD, lymphadenopathy, thyromegaly Respiratory exam: PRESENT: crackles, decreased breath sounds, rhonchi, unlabored. ABSENT: rales, wheezes Cardiovascular exam: PRESENT: RRR, +S1, +S2. ABSENT: diastolic murmur, rubs, systolic murmur Pulses: PRESENT: normal dorsalis pedis pul GI/Abdominal exam: PRESENT: soft. ABSENT: distended, guarding, mass, organolmegaly, rebound, tenderness Rectal exam: PRESENT: deferred Extremities exam: PRESENT: full ROM. ABSENT: calf tenderness, clubbing, pedal edema Neurological exam: PRESENT: alert, awake, oriented to person, oriented to place, oriented to time, oriented to situation, CN II-XII grossly intact. ABSENT: motor sensory deficit Psychiatric exam: PRESENT: appropriate affect, normal mood. ABSENT: homicidal ideation, suicidal ideation Skin exam: PRESENT: dry, intact, warm. ABSENT: cyanosis, rash Results Laboratory Results: 09/30/19 10:45 09/30/19 10:45 09/30/19 09/30/19 09/30/19 05:22 05:22 10:45 WBC 33.1 H* 33.3 H* RBC 5.37 H 5.41 H Hgb 12.9 13.1 Hct 39.9 40.3 MCV 74 L 75 L MCH 24.0 L 24.2 L MCHC 32.3 32.5 RDW 17.0 H 17.2 H Plt Count 399 400 Seg Neutrophils % Not Reportable Not Reportable Sodium 142.6 Potassium 4.9 Chloride 108 H Carbon Dioxide 25 Anion Gap 10 BUN 21 H Creatinine 0.69 Est GFR ( Amer) > 60 Glucose 94 Calcium 9.5 09/30/19 10:45 WBC RBC Hgb Hct MCV MCH MCHC RDW Plt Count Seg Neutrophils % Sodium 141.2 Potassium 4.1 Chloride 109 H Carbon Dioxide 25 Anion Gap 7 BUN 19 Creatinine 0.70 Est GFR ( Amer) > 60 Glucose 95 Calcium 9.5 09/28/19 19:11 Troponin I < 0.012 NT-Pro-B Natriuret Pep 97 Impressions: Chest X-Ray 09/28/19 18:42 IMPRESSION: CHRONIC SCARRING IN THE LUNG BASES. POSSIBLE DEVELOPING INFILTRATE IN THE LEFT LUNG. Chest CT 09/30/19 00:00 IMPRESSION: Stable mild linear bibasilar opacities, likely atelectasis or scarring. No definite superimposed airspace disease or other evidence of acute cardiopulmonary process. Assessment and Plan - Diagnosis (1) Pneumonia Qualifiers: Pneumonia type: due to unspecified organism Laterality: unspecified laterality Lung location: unspecified part of lung Qualified Code(s): J18.9 - Pneumonia, unspecified organism Is this a current diagnosis for this admission?: Yes Plan: CT scan done today confirms a diagnosis of pneumonia. No other significant findings. We will continue with current antibiotics as patient is clinically improved. Increased leukocytosis likely secondary to steroids that patient had received (2) Acute hypoxemic respiratory failure Is this a current diagnosis for this admission?: Yes Plan: We will continue with oxygen support and wean off as tolerated. Secondary to underlying pneumonia (3) Anxiety Is this a current diagnosis for this admission?: Yes Plan: Controlled (4) COPD exacerbation Is this a current diagnosis for this admission?: Yes Plan: Secondary to #1, supplemental oxygen, flutter valve, ambulating pulse oximetry as tolerated (5) Hypertension Qualifiers: Hypertension type: essential hypertension Qualified Code(s): I10 - Essential (primary) hypertension Is this a current diagnosis for this admission?: Yes Plan: BP controlled (6) Sepsis Qualifiers: Sepsis type: sepsis due to unspecified organism Acute respiratory failure type: with hypoxia Severe sepsis shock status: without septic shock Is this a current diagnosis for this admission?: Yes Plan: Present on admission, continue antibiotics and supportive treatment
[2019-09-30 18:55] LABS: HEMATOCRIT 43.5 % (36.0-47.0); MEAN CORPUSCULAR HEMOGLOBIN 24.1 pg (27.0-33.4); MEAN CORPUSCULAR HGB CONC 32.3 g/dL (32.0-36.0); MEAN CORPUSCULAR VOLUME 75 fl (80-97); PLATELET COUNT 443 10^3/uL (150-450); RED BLOOD COUNT 5.82 10^6/uL (3.72-5.28); RED CELL DISTRIBUTION WIDTH 17.4 % (11.5-14.0); WHITE BLOOD COUNT 27.5 10^3/uL (4.0-10.5)
[2019-09-30 19:19] LABS: ABSOLUTE LYMPHOCYTES# (MANUAL) 3.9 10^3/uL (0.5-4.7); ABSOLUTE MONOCYTES # (MANUAL) 1.4 10^3/uL (0.1-1.4); ANISOCYTOSIS 1+; BAND NEUTROPHILS % (MANUAL) 2 % (3-5); BASOPHILS % (MANUAL) 0 % (0-2); EOSINOPHILS % (MANUAL) 0 % (0-6); LYMPHOCYTES % (MANUAL) 14 % (13-45); MONOCYTES % (MANUAL) 5 % (3-13); PLATELET COMMENT ADEQUATE; POLYCHROMASIA 1+; SEGMENTED NEUTROPHILS % (MAN) 79 % (42-78); TOTAL CELLS COUNTED 100
[2019-10-01] MEDS: IPRATROPIUM/ALBUTEROL 0.5-2.5 MG/3 ML AMPUL NEB SCH ×3 (00:43→15:56)
[2019-10-01] MEDS: DOXYCYCLINE HYCLATE 100 MG in DEXTROSE 5%-WATER 250 ML IV SCH ×2 (06:05→17:51)
[2019-10-01] MEDS: HEPARIN SOD (PORCINE) 5,000 UNIT/ML 1 ML VIAL SUBCUT SCH ×3 (06:06→22:22)
[2019-10-01 06:13] LABS: ANION GAP 9 (5-19); BLOOD UREA NITROGEN 19 mg/dL (7-20); CALCIUM 9.6 mg/dL (8.4-10.2); CARBON DIOXIDE 26 mmol/L (22-30); CHLORIDE 107 mmol/L (98-107); GLUCOSE 97 mg/dL (75-110); POTASSIUM 4.5 mmol/L (3.6-5.0)
[2019-10-01] MEDS: CEFEPIME HCL 2 GM in DEXTROSE 5%-WATER 50 ML IV SCH ×2 (10:40→22:16)
[2019-10-01] MEDS: PREDNISONE 20 MG TABLET PO SCH ×2 (10:40→17:49)
[2019-10-01] MEDS: FLUTICASONE NASAL SPRAY 50 MCG/SPRY 120 SPRAY/16 GM NASL SCH ×2 (11:00→22:23)
--- NOTE | 2019-10-01 17:22 | PDOC PROGRESS REPORT ---
Subjective Progress Note for:: 10/01/19 Subjective:: Patient s feels much better today. Breathing has improved. She remains afebrile Reason For Visit: COPD EXACERBATION C PNEUMONIA Physical Exam Vital Signs: Temp Pulse Resp BP Pulse Ox 98.3 F 96 16 148/102 H 96 10/01/19 12:00 10/01/19 15:58 10/01/19 15:58 10/01/19 12:00 10/01/19 15:58 Intake & Output 09/30/19 10/01/19 10/02/19 06:59 06:59 06:59 Intake Total 1215 1770 300 Output Total 1300 Balance -85 1770 300 Weight 77.8 kg 77.7 kg General appearance: PRESENT: no acute distress Head exam: PRESENT: atraumatic Neck exam: PRESENT: full ROM. ABSENT: JVD Respiratory exam: PRESENT: decreased breath sounds, rhonchi - Occasional, unlabored. ABSENT: accessory muscle use, tachypnea, wheezes Cardiovascular exam: PRESENT: +S1, +S2 GI/Abdominal exam: PRESENT: soft. ABSENT: tenderness Rectal exam: PRESENT: deferred Neurological exam: PRESENT: alert, awake, oriented to person, oriented to place, oriented to situation Results Laboratory Results: 09/30/19 18:05 10/01/19 05:05 09/30/19 10/01/19 18:05 05:05 WBC 27.5 H RBC 5.82 H Hgb 14.0 Hct 43.5 MCV 75 L MCH 24.1 L MCHC 32.3 RDW 17.4 H Plt Count 443 Seg Neutrophils % Not Reportable Sodium 141.7 Potassium 4.5 Chloride 107 Carbon Dioxide 26 Anion Gap 9 BUN 19 Creatinine 0.72 Est GFR ( Amer) > 60 Glucose 97 Calcium 9.6 09/28/19 19:11 Troponin I < 0.012 NT-Pro-B Natriuret Pep 97 Impressions: Chest X-Ray 09/28/19 18:42 IMPRESSION: CHRONIC SCARRING IN THE LUNG BASES. POSSIBLE DEVELOPING INFILTRATE IN THE LEFT LUNG. Chest CT 09/30/19 00:00 IMPRESSION: Stable mild linear bibasilar opacities, likely atelectasis or scarring. No definite superimposed airspace disease or other evidence of acute cardiopulmonary process. Assessment and Plan - Diagnosis (1) Pneumonia Qualifiers: Pneumonia type: due to unspecified organism Laterality: unspecified laterality Lung location: unspecified part of lung Qualified Code(s): J18.9 - Pneumonia, unspecified organism Is this a current diagnosis for this admission?: Yes Plan: CT scan confirms a diagnosis of pneumonia. No other significant findings. patient is clinically improved. Increased leukocytosis likely secondary to steroids that patient had received and it appears to be trending down (2) Acute hypoxemic respiratory failure Is this a current diagnosis for this admission?: Yes Plan: Secondary to acute pneumonia. Will begin to taper as tolerated (3) Anxiety Is this a current diagnosis for this admission?: Yes (4) COPD exacerbation Is this a current diagnosis for this admission?: Yes (5) Hypertension Qualifiers: Hypertension type: essential hypertension Qualified Code(s): I10 - Essential (primary) hypertension Is this a current diagnosis for this admission?: Yes Plan: BP controlled (6) Sepsis Qualifiers: Sepsis type: sepsis due to unspecified organism Acute respiratory failure type: with hypoxia Severe sepsis shock status: without septic shock Is this a current diagnosis for this admission?: Yes Plan: Present on admission, continue antibiotics and supportive treatment Currently resolving
[2019-10-01 19:18] LABS: HEMOGLOBIN 13.9 g/dL (12.0-15.5); MEAN CORPUSCULAR HGB CONC 32.2 g/dL (32.0-36.0); MEAN CORPUSCULAR VOLUME 75 fl (80-97); PLATELET COUNT 425 10^3/uL (150-450); RED BLOOD COUNT 5.77 10^6/uL (3.72-5.28); RED CELL DISTRIBUTION WIDTH 17.6 % (11.5-14.0)
[2019-10-01 19:38] LABS: ABSOLUTE LYMPHOCYTES# (MANUAL) 3.2 10^3/uL (0.5-4.7); ABSOLUTE MONOCYTES # (MANUAL) 1.5 10^3/uL (0.1-1.4); ANISOCYTOSIS 1+; BASOPHILS % (MANUAL) 0 % (0-2); EOSINOPHILS % (MANUAL) 0 % (0-6); LYMPHOCYTES % (MANUAL) 12 % (13-45); MONOCYTES % (MANUAL) 7 % (3-13); SEGMENTED NEUTROPHILS % (MAN) 78 % (42-78); TOTAL CELLS COUNTED 100
[2019-10-01 19:39] LABS: HYPOCHROMASIA SLIGHT; PLATELET COMMENT ADEQUATE; TARGET CELLS SLIGHT
[2019-10-02] MEDS: IPRATROPIUM/ALBUTEROL 0.5-2.5 MG/3 ML AMPUL NEB SCH ×3 (00:18→16:08)
[2019-10-02] MEDS: HEPARIN SOD (PORCINE) 5,000 UNIT/ML 1 ML VIAL SUBCUT SCH ×3 (05:42→22:18)
[2019-10-02] MEDS: DOXYCYCLINE HYCLATE 100 MG in DEXTROSE 5%-WATER 250 ML IV SCH ×2 (05:42→17:30)
[2019-10-02 06:20] LABS: ANION GAP 14 (5-19); BLOOD UREA NITROGEN 17 mg/dL (7-20); CALCIUM 9.4 mg/dL (8.4-10.2); CARBON DIOXIDE 23 mmol/L (22-30); CHLORIDE 104 mmol/L (98-107); GLUCOSE 105 mg/dL (75-110)
[2019-10-02] MEDS: CEFEPIME HCL 2 GM in DEXTROSE 5%-WATER 50 ML IV SCH ×2 (09:19→22:18)
[2019-10-02] MEDS: PREDNISONE 20 MG TABLET PO SCH (09:20)
[2019-10-02] MEDS: FLUTICASONE NASAL SPRAY 50 MCG/SPRY 120 SPRAY/16 GM NASL SCH ×2 (09:20→22:18)
--- NOTE | 2019-10-02 16:38 | PDOC PROGRESS REPORT ---
Subjective Progress Note for:: 10/02/19 Subjective:: Patient feels a lot better today. In fact I saw her ambulating the hallways without oxygen. She is improved dramatically since admission. Reason For Visit: COPD EXACERBATION C PNEUMONIA Physical Exam Vital Signs: Temp Pulse Resp BP Pulse Ox 98.3 F 112 H 14 130/80 H 94 10/02/19 12:00 10/02/19 16:00 10/02/19 16:00 10/02/19 12:00 10/02/19 16:00 Intake & Output 10/01/19 10/02/19 10/03/19 06:59 06:59 06:59 Intake Total 1770 840 780 Balance 1770 840 780 Weight 77.7 kg 77.7 kg General appearance: PRESENT: no acute distress, well-developed, well-nourished Head exam: PRESENT: atraumatic, normocephalic Eye exam: PRESENT: conjunctiva pink, EOMI, PERRLA. ABSENT: scleral icterus Mouth exam: PRESENT: tongue midline Neck exam: ABSENT: carotid bruit, JVD, lymphadenopathy, thyromegaly Respiratory exam: PRESENT: decreased breath sounds, rhonchi. ABSENT: rales, wheezes Cardiovascular exam: PRESENT: RRR. ABSENT: diastolic murmur, rubs, systolic murmur GI/Abdominal exam: PRESENT: normal bowel sounds, soft. ABSENT: distended, guarding, mass, organolmegaly, rebound, tenderness Rectal exam: PRESENT: deferred Extremities exam: PRESENT: full ROM. ABSENT: calf tenderness, clubbing, pedal edema Neurological exam: PRESENT: alert, awake, oriented to person, oriented to place, oriented to time, oriented to situation, CN II-XII grossly intact. ABSENT: motor sensory deficit Psychiatric exam: PRESENT: appropriate affect, normal mood. ABSENT: homicidal ideation, suicidal ideation Skin exam: PRESENT: dry, intact, warm. ABSENT: cyanosis, rash Results Laboratory Results: 10/01/19 19:00 10/02/19 05:00 10/01/19 10/02/19 19:00 05:00 WBC 21.0 H RBC 5.77 H Hgb 13.9 Hct 43.0 MCV 75 L MCH 24.0 L MCHC 32.2 RDW 17.6 H Plt Count 425 Seg Neutrophils % Not Reportable Sodium 141.4 Potassium 4.0 Chloride 104 Carbon Dioxide 23 Anion Gap 14 BUN 17 Creatinine 0.73 Est GFR ( Amer) > 60 Glucose 105 Calcium 9.4 09/28/19 19:11 Troponin I < 0.012 NT-Pro-B Natriuret Pep 97 Impressions: Chest X-Ray 09/28/19 18:42 IMPRESSION: CHRONIC SCARRING IN THE LUNG BASES. POSSIBLE DEVELOPING INFILTRATE IN THE LEFT LUNG. Chest CT 09/30/19 00:00 IMPRESSION: Stable mild linear bibasilar opacities, likely atelectasis or scarring. No definite superimposed airspace disease or other evidence of acute cardiopulmonary process. Assessment and Plan - Diagnosis (1) Pneumonia Qualifiers: Pneumonia type: due to unspecified organism Laterality: unspecified laterality Lung location: unspecified part of lung Qualified Code(s): J18.9 - Pneumonia, unspecified organism Is this a current diagnosis for this admission?: Yes Plan: Patient symptoms have improved dramatically. She is still tachycardic however this is also improved. We will continue with the cefepime and doxycycline. We will follow-up with her CBC. (2) Acute hypoxemic respiratory failure Is this a current diagnosis for this admission?: Yes Plan: Secondary to pneumonia this has resolved (3) Anxiety Is this a current diagnosis for this admission?: Yes Plan: Under control (4) COPD exacerbation Is this a current diagnosis for this admission?: Yes Plan: We will taper steroids (5) Hypertension Qualifiers: Hypertension type: essential hypertension Qualified Code(s): I10 - Essential (primary) hypertension Is this a current diagnosis for this admission?: Yes Plan: Controlled (6) Sepsis Qualifiers: Sepsis type: sepsis due to unspecified organism Acute respiratory failure type: with hypoxia Severe sepsis shock status: without septic shock Is this a current diagnosis for this admission?: Yes Plan: Resolving - Time Time Spent with patient: 15-24 minutes Medications reviewed and adjusted accordingly: Yes Anticipated discharge: Home Within: within 72 hours
[2019-10-02 17:50] LABS: HEMATOCRIT 42.8 % (36.0-47.0); MEAN CORPUSCULAR HEMOGLOBIN 23.9 pg (27.0-33.4); MEAN CORPUSCULAR HGB CONC 32.8 g/dL (32.0-36.0); MEAN CORPUSCULAR VOLUME 73 fl (80-97); PLATELET COUNT 451 10^3/uL (150-450); RED BLOOD COUNT 5.88 10^6/uL (3.72-5.28); RED CELL DISTRIBUTION WIDTH 17.4 % (11.5-14.0); WHITE BLOOD COUNT 23.3 10^3/uL (4.0-10.5)
[2019-10-02 18:10] LABS: ABSOLUTE LYMPHOCYTES# (MANUAL) 6.8 10^3/uL (0.5-4.7); ABSOLUTE MONOCYTES # (MANUAL) 0.2 10^3/uL (0.1-1.4); BASOPHILS % (MANUAL) 0 % (0-2); EOSINOPHILS % (MANUAL) 0 % (0-6); LYMPHOCYTES % (MANUAL) 29 % (13-45); MONOCYTES % (MANUAL) 1 % (3-13); SEGMENTED NEUTROPHILS % (MAN) 70 % (42-78); TOTAL CELLS COUNTED 100
[2019-10-02 18:11] LABS: ANISOCYTOSIS 1+; OVALOCYTES 1+; POIKILOCYTOSIS SLIGHT; TOXIC GRANULATION SLIGHT; TOXIC VACUOLATION PRESENT
[2019-10-02 18:12] LABS: PLATELET COMMENT ADEQUATE
[2019-10-03] MEDS: DOXYCYCLINE HYCLATE 100 MG in DEXTROSE 5%-WATER 250 ML IV SCH ×2 (05:33→18:15)
[2019-10-03] MEDS: HEPARIN SOD (PORCINE) 5,000 UNIT/ML 1 ML VIAL SUBCUT SCH ×2 (05:36→22:07)
[2019-10-03] MEDS: IPRATROPIUM/ALBUTEROL 0.5-2.5 MG/3 ML AMPUL NEB SCH ×3 (09:04→16:24)
[2019-10-03] MEDS: CEFEPIME HCL 2 GM in DEXTROSE 5%-WATER 50 ML IV SCH ×2 (09:07→22:05)
[2019-10-03] MEDS: FLUTICASONE NASAL SPRAY 50 MCG/SPRY 120 SPRAY/16 GM NASL SCH ×2 (09:08→22:05)
[2019-10-03 09:55] LABS: HEMATOCRIT 42.6 % (36.0-47.0); MEAN CORPUSCULAR HEMOGLOBIN 24.4 pg (27.0-33.4); MEAN CORPUSCULAR HGB CONC 32.9 g/dL (32.0-36.0); MEAN CORPUSCULAR VOLUME 74 fl (80-97); PLATELET COUNT 426 10^3/uL (150-450); RED BLOOD COUNT 5.74 10^6/uL (3.72-5.28); RED CELL DISTRIBUTION WIDTH 16.9 % (11.5-14.0); WHITE BLOOD COUNT 25.3 10^3/uL (4.0-10.5)
[2019-10-03] MEDS ORDERED: PREDNISONE 20 MG TABLET PO SCH (10:00)
[2019-10-03 11:44] LABS: ABSOLUTE LYMPHOCYTES# (MANUAL) 4.8 10^3/uL (0.5-4.7); ABSOLUTE MONOCYTES # (MANUAL) 1.3 10^3/uL (0.1-1.4); BASOPHILS % (MANUAL) 0 % (0-2); EOSINOPHILS % (MANUAL) 1 % (0-6); LYMPHOCYTES % (MANUAL) 19 % (13-45); MONOCYTES % (MANUAL) 5 % (3-13); SEGMENTED NEUTROPHILS % (MAN) 75 % (42-78); TOTAL CELLS COUNTED 100
[2019-10-03 11:49] LABS: ANISOCYTOSIS 1+; HYPOCHROMASIA SLIGHT; OVALOCYTES SLIGHT; PLATELET COMMENT ADEQUATE; PLATELET LARGE PRESENT; TEAR DROP CELLS SLIGHT; TOXIC VACUOLATION PRESENT
--- NOTE | 2019-10-03 16:09 | PDOC PROGRESS REPORT ---
Subjective Progress Note for:: 10/03/19 Subjective:: Patient continues to clinically improve. She is off oxygen. Her breathing has improved. Her white count is 25,000 today however patient is clinically improved no sign of deteriorating clinical picture. Part of the leukocytosis is likely secondary to steroids which have continue to taper. Looking back at her computer records it appears she is always had a leukocytosis as far back as 2011 although not as high as it is today. If she continues to be stable hem odynamically and her white count shows a downward trend she can be discharged hopefully in a.m. Reason For Visit: COPD EXACERBATION C PNEUMONIA Physical Exam Vital Signs: Temp Pulse Resp BP Pulse Ox 97.8 F 99 14 130/70 H 97 10/03/19 12:00 10/03/19 12:00 10/03/19 12:00 10/03/19 12:00 10/03/19 12:00 Intake & Output 10/02/19 10/03/19 10/04/19 06:59 06:59 06:59 Intake Total 840 1080 510 Balance 840 1080 510 Weight 77.7 kg 77.7 kg General appearance: PRESENT: no acute distress, well-developed Head exam: PRESENT: atraumatic Neck exam: PRESENT: full ROM. ABSENT: JVD GI/Abdominal exam: PRESENT: soft. ABSENT: tenderness Rectal exam: PRESENT: deferred Extremities exam: ABSENT: calf tenderness, tenderness Musculoskeletal exam: PRESENT: ambulatory Neurological exam: PRESENT: alert, awake, oriented to person, oriented to place, oriented to time Psychiatric exam: PRESENT: appropriate affect Results Laboratory Results: 10/03/19 09:27 10/02/19 05:00 10/02/19 10/03/19 17:33 09:27 WBC 23.3 H 25.3 H RBC 5.88 H 5.74 H Hgb 14.0 14.0 Hct 42.8 42.6 MCV 73 L 74 L MCH 23.9 L 24.4 L MCHC 32.8 32.9 RDW 17.4 H 16.9 H Plt Count 451 H 426 Seg Neutrophils % Not Reportable Not Reportable 09/28/19 19:11 Troponin I < 0.012 NT-Pro-B Natriuret Pep 97 Impressions: Chest X-Ray 09/28/19 18:42 IMPRESSION: CHRONIC SCARRING IN THE LUNG BASES. POSSIBLE DEVELOPING INFILTRATE IN THE LEFT LUNG. Chest CT 09/30/19 00:00 IMPRESSION: Stable mild linear bibasilar opacities, likely atelectasis or scarring. No definite superimposed airspace disease or other evidence of acute cardiopulmonary process. Assessment and Plan - Diagnosis (1) Pneumonia Qualifiers: Pneumonia type: due to unspecified organism Laterality: unspecified laterality Lung location: unspecified part of lung Qualified Code(s): J18.9 - Pneumonia, unspecified organism Is this a current diagnosis for this admission?: Yes Plan: Patient continues to improve. Her tachycardia is also resolving and hypoxemia has resolved. We will continue with the cefepime and doxycycline. We will follow-up with her CBC in a.m. (2) Acute hypoxemic respiratory failure Is this a current diagnosis for this admission?: Yes Plan: Secondary to pneumonia this has resolved (3) Anxiety Is this a current diagnosis for this admission?: Yes (4) COPD exacerbation Is this a current diagnosis for this admission?: Yes Plan: Continue to taper steroids She is down to 10 mg today (5) Hypertension Qualifiers: Hypertension type: essential hypertension Qualified Code(s): I10 - Essential (primary) hypertension Is this a current diagnosis for this admission?: Yes Plan: Controlled (6) Sepsis Qualifiers: Sepsis type: sepsis due to unspecified organism Acute respiratory failure type: with hypoxia Severe sepsis shock status: without septic shock Is this a current diagnosis for this admission?: Yes Plan: Resolving - Time Time Spent with patient: 15-24 minutes Medications reviewed and adjusted accordingly: Yes Anticipated discharge: Home Within: within 24 hours
[2019-10-04] MEDS: IPRATROPIUM/ALBUTEROL 0.5-2.5 MG/3 ML AMPUL NEB SCH ×2 (00:22→07:45)
[2019-10-04 04:43] LABS: HEMATOCRIT 39.6 % (36.0-47.0); MEAN CORPUSCULAR HEMOGLOBIN 24.1 pg (27.0-33.4); MEAN CORPUSCULAR HGB CONC 32.8 g/dL (32.0-36.0); MEAN CORPUSCULAR VOLUME 74 fl (80-97); PLATELET COUNT 444 10^3/uL (150-450); RED BLOOD COUNT 5.39 10^6/uL (3.72-5.28); RED CELL DISTRIBUTION WIDTH 16.9 % (11.5-14.0); WHITE BLOOD COUNT 25.4 10^3/uL (4.0-10.5)
[2019-10-04 05:11] LABS: ABSOLUTE LYMPHOCYTES# (MANUAL) 8.4 10^3/uL (0.5-4.7); ABSOLUTE MONOCYTES # (MANUAL) 2.3 10^3/uL (0.1-1.4); ANISOCYTOSIS 1+; BASOPHILS % (MANUAL) 0 % (0-2); EOSINOPHILS % (MANUAL) 6 % (0-6); LYMPHOCYTES % (MANUAL) 33 % (13-45); MONOCYTES % (MANUAL) 9 % (3-13); SEGMENTED NEUTROPHILS % (MAN) 52 % (42-78); TOTAL CELLS COUNTED 100
[2019-10-04 05:12] LABS: PLATELET COMMENT ADEQUATE
[2019-10-04] MEDS: HEPARIN SOD (PORCINE) 5,000 UNIT/ML 1 ML VIAL SUBCUT SCH (05:24)
[2019-10-04] MEDS: DOXYCYCLINE HYCLATE 100 MG in DEXTROSE 5%-WATER 250 ML IV SCH (05:27)
[2019-10-04] MEDS ORDERED: PREDNISONE 10 MG TABLET PO SCH (10:00)
[2019-10-04] MEDS ORDERED: PREDNISONE 20 MG TABLET PO SCH (10:00)
[2019-10-04] MEDS: FLUTICASONE NASAL SPRAY 50 MCG/SPRY 120 SPRAY/16 GM NASL SCH (10:38)
--- NOTE | 2019-10-04 11:09 | PDOC DISCHARGE SUMMARY ---
Impression - Admit/DC Date/PCP Admission Date/Primary Care Provider: 09/29/19 01:08 BRAYDEN MANN MD Discharge Date: 10/04/19 - Discharge Diagnosis (1) Acute hypoxemic respiratory failure Is this a current diagnosis for this admission?: Yes (2) Anxiety Is this a current diagnosis for this admission?: Yes (3) COPD exacerbation Is this a current diagnosis for this admission?: Yes (4) Hypertension Is this a current diagnosis for this admission?: Yes (5) Pneumonia Is this a current diagnosis for this admission?: Yes (6) Sepsis Is this a current diagnosis for this admission?: Yes (7) Tobacco abuse Is this a current diagnosis for this admission?: Yes (8) Leukocytosis Is this a current diagnosis for this admission?: Yes - Additional Information Resuscitation Status: Full Code Discharge Diet: Cardiac Discharge Activity: Activity As Tolerated, Balance Activity w/Rest Referrals: BRAYDEN MANN MD [Primary Care Provider] - 10/13/19 8:00 am Prescriptions: Doxycycline Hyclate 100 mg PO BID #14 tablet. Fluticasone Propionate [Flonase Nasal [place] 50 Mcg/[place] 16 gm] 2 spray NASL Q12 #1 spray.pump Guaifenesin [Mucinex Sr 600 mg Tablet.sa] 600 mg PO Q12 #14 tablet.sa Montelukast Sodium [Singulair 10 mg Tablet] 10 mg PO QHS #30 tablet Albuterol Sulfate [Ventolin Hfa 8 gm Mdi (1 Mdi/ER Disp)] 2 puff IH Q4HP PRN #1 inhaler PRN Reason: Home Medications: Albuterol Sulfate [Proair HFA Inhalation Aerosol 8.5 gm MDI] 2 puff IH Q6HP PRN 09/29/19 Oxycodone HCl/Acetaminophen [Percocet 10-325 mg Tablet] 1 tab PO BIDP PRN 09/29/19 Phentermine HCl 37.5 mg PO DAILY 09/29/19 Albuterol Sulfate [Ventolin Hfa 8 gm Mdi (1 Mdi/ER Disp)] 2 puff IH Q4HP PRN #1 inhaler 10/04/19 Doxycycline Hyclate 100 mg PO BID #14 tablet. 10/04/19 Fluticasone Propionate [Flonase Nasal [place] 50 Mcg/[place] 16 gm] 2 spray NASL Q12 #1 spray.pump 0211/20 Guaifenesin [Mucinex Sr 600 mg Tablet.sa] 600 mg PO Q12 #14 tablet.sa 10/04/19 Montelukast Sodium [Singulair 10 mg Tablet] 10 mg PO QHS #30 tablet 10/04/19 History of Present Illiness History of Present Illness: Per H&P by Dr. Marinelli: ELLA RICHCORRY is a 54 year old female with a past medical history of chronic bronchitis, COPD, hypertension and obesity. Her only current medications are phentermine having run out of her other scheduled medications for unclear duration. She presents with 48 hours of subjective fever shortness of breath nonproductive cough. In the emergency department she is found to have hypertension, tachycardia, tachypnea with retractions, and anxious affect and left lower lobe infiltrate. She started on supplemental oxygen, empiric antibiotics, albuterol and Atrovent then referred to the hospitalist for admission. Patient denies recent pneumonia but admits to multiple coworkers from the [employer] plant with similar symptoms. Hospital Course Hospital Course: (1) Pneumonia Patient was admitted to the medical floor on continuous cardiac telemetry. She was provided supplemental oxygen as needed maintain saturations greater than 89%. She was supported with scheduled and as needed nebulizer treatments Flonase, Mucinex, Singulair,, and aggressive pulmonary toilet. She was empirically placed on cefepime and doxycycline. Patient continues to improve. Her tachycardia is also resolving and hypoxemia has resolved. We will continue with the cefepime and doxycycline. She received 5 days of IV cefepime. She is transition to oral doxycycline to complete full course of therapy following discharge. The patient's symptoms gradually improved and she is now maintaining oxygen saturations while ambulatory on room air. She does continue to have slight, occasional, dyspnea with exertion and nonproductive cough but overall is feeling significantly improved and requesting discharge to home. (2) Acute hypoxemic respiratory failure Resolved; secondary to #1. (3) Anxiety Stable and without need for medication intervention. Supportive care; reassurance. (4) COPD exacerbation Resolved; secondary to #1. Patient was supported with supplemental oxygen schedule and as needed nebulizer treatments, Flonase, Mucinex, Singulair, and steroid taper. She was weaned off of steroids prior to discharge. (5) Hypertension Controlled without use of antihypertensive medications. Recommend continuing cardiac diet. Further management per PCP. (6) Sepsis Resolved. Patient was admitted to the medical floor on continuous cardiac telemetry. She was supported with IV fluids and empiric antibiotic therapy. (7) leukocytosis Chronic and return to her baseline of 25. Recommend PCP follow-up and outpatient referral to hematology. Physical Exam Vital Signs: Temp Pulse Resp BP Pulse Ox 98.5 F 66 16 134/96 H 93 10/03/19 23:47 10/04/19 07:46 10/04/19 07:46 10/03/19 23:47 10/04/19 07:46 Intake & Output 10/03/19 10/04/19 10/05/19 06:59 06:59 06:59 Intake Total 1080 1330 Balance 1080 1330 Weight 77.7 kg 79 kg General appearance: PRESENT: no acute distress, cooperative, well-developed, well-nourished Head exam: PRESENT: atraumatic, normocephalic Eye exam: PRESENT: conjunctiva pink, EOMI, PERRLA. ABSENT: scleral icterus Ear exam: PRESENT: normal external ear exam Mouth exam: PRESENT: moist, tongue midline Neck exam: ABSENT: carotid bruit, JVD, lymphadenopathy, thyromegaly Respiratory exam: PRESENT: symmetrical, unlabored, wheezes - scant expiratory. ABSENT: rales, rhonchi Cardiovascular exam: PRESENT: RRR, +S1, +S2. ABSENT: diastolic murmur, rubs, systolic murmur Pulses: PRESENT: normal dorsalis pedis pul Vascular exam: PRESENT: normal capillary refill GI/Abdominal exam: PRESENT: normal bowel sounds, soft. ABSENT: distended, guarding, mass, organolmegaly, rebound, tenderness Rectal exam: PRESENT: deferred Extremities exam: PRESENT: full ROM. ABSENT: calf tenderness, clubbing, pedal edema Musculoskeletal exam: PRESENT: ambulatory - independently; on room air Neurological exam: PRESENT: alert, awake, oriented to person, oriented to place, oriented to time, oriented to situation, CN II-XII grossly intact. ABSENT: motor sensory deficit Psychiatric exam: PRESENT: appropriate affect, normal mood. ABSENT: homicidal ideation, suicidal ideation Skin exam: PRESENT: dry, intact, warm. ABSENT: cyanosis, rash Results Laboratory Results: WBC 25.4 10^3/uL (4.0-10.5) H 10/04/19 03:43 RBC 5.39 10^6/uL (3.72-5.28) H 10/04/19 03:43 Hgb 13.0 g/dL (12.0-15.5) 10/04/19 03:43 Hct 39.6 % (36.0-47.0) 10/04/19 03:43 MCV 74 fl (80-97) L 10/04/19 03:43 MCH 24.1 pg (27.0-33.4) L 10/04/19 03:43 MCHC 32.8 g/dL (32.0-36.0) 10/04/19 03:43 RDW 16.9 % (11.5-14.0) H 10/04/19 03:43 Plt Count 444 10^3/uL (150-450) 10/04/19 03:43 Lymph % (Auto) Not Reportable 10/04/19 03:43 Elbert % (Auto) Not Reportable 10/04/19 03:43 Eos % (Auto) Not Reportable 10/04/19 03:43 Baso % (Auto) Not Reportable 10/04/19 03:43 Absolute Neuts (auto) Not Reportable 10/04/19 03:43 Absolute Lymphs (auto) Not Reportable 10/04/19 03:43 Absolute Monos (auto) Not Reportable 10/04/19 03:43 Absolute Eos (auto) Not Reportable 10/04/19 03:43 Absolute Basos (auto) Not Reportable 10/04/19 03:43 Total Counted 100 10/04/19 03:43 Seg Neutrophils % Not Reportable 10/04/19 03:43 Seg Neuts % (Manual) 52 % (42-78) 10/04/19 03:43 Band Neutrophils % 2 % (3-5) L 09/30/19 18:05 Lymphocytes % (Manual) 33 % (13-45) 10/04/19 03:43 Atypical Lymphs % 3 % (0) 10/01/19 19:00 Monocytes % (Manual) 9 % (3-13) 10/04/19 03:43 Eosinophils % (Manual) 6 % (0-6) 10/04/19 03:43 Basophils % (Manual) 0 % (0-2) 10/04/19 03:43 Abs Neuts (Manual) 13.2 10^3/uL (1.7-8.2) H 10/04/19 03:43 Abs Lymphs (Manual) 8.4 10^3/uL (0.5-4.7) H 10/04/19 03:43 Abs Monocytes (Manual) 2.3 10^3/uL (0.1-1.4) H 10/04/19 03:43 Absolute Eos (Manual) 1.5 10^3/uL (0.0-0.6) H 10/04/19 03:43 Abs Basophils (Manual) 0.0 10^3/uL (0.0-0.2) 10/04/19 03:43 Toxic Granulation SLIGHT 10/02/19 17:33 Toxic Vacuolation PRESENT 10/03/19 09:27 Large Platelets PRESENT 10/03/19 09:27 Platelet Comment ADEQUATE 10/04/19 03:43 Polychromasia 1+ 09/30/19 18:05 Hypochromasia SLIGHT 10/03/19 09:27 Poikilocytosis SLIGHT 10/02/19 17:33 Anisocytosis 1+ 10/04/19 03:43 Microcytosis 1+ 10/04/19 03:43 Target Cells SLIGHT 10/01/19 19:00 Tear Drop Cells SLIGHT 10/03/19 09:27 Ovalocytes SLIGHT 10/03/19 09:27 Carbonic Acid 1.30 mmol/L (1.05-1.35) 09/29/19 01:30 HCO3/H2CO3 Ratio 17:1 09/29/19 01:30 ABG pH 7.33 (7.35-7.45) L 09/29/19 01:30 ABG pCO2 43.2 mmHg (35-45) 09/29/19 01:30 ABG pO2 56.9 mmHg (80-100) L 09/29/19 01:30 ABG HCO3 22.1 mmol/L (20-24) 09/29/19 01:30 ABG Total CO2 23.4 mmol/L (21-25) 09/29/19 01:30 ABG O2 Saturation 87.6 % (94-98) L 09/29/19 01:30 ABG Base Excess -3.8 mmol/L 09/29/19 01:30 FiO2 4L 09/29/19 01:30 Sodium 141.4 mmol/L (137-145) 10/02/19 05:00 Potassium 4.0 mmol/L (3.6-5.0) 10/02/19 05:00 Chloride 104 mmol/L (98-107) 10/02/19 05:00 Carbon Dioxide 23 mmol/L (22-30) 10/02/19 05:00 Anion Gap 14 (5-19) 10/02/19 05:00 BUN 17 mg/dL (7-20) 10/02/19 05:00 Creatinine 0.73 mg/dL (0.52-1.25) 10/02/19 05:00 Est GFR ( Amer) > 60 (>60) 10/02/19 05:00 Est GFR (MDRD) Non-Af > 60 (>60) 10/02/19 05:00 Glucose 105 mg/dL (75-110) 10/02/19 05:00 Lactic Acid 2.3 mmol/L (0.7-2.1) H 09/29/19 13:09 Calcium 9.4 mg/dL (8.4-10.2) 10/02/19 05:00 Total Bilirubin 0.4 mg/dL (0.2-1.3) 09/28/19 19:11 Direct Bilirubin 0.1 mg/dL (0.0-0.4) 09/28/19 19:11 Neonat Total Bilirubin Not Reportable 09/28/19 19:11 Neonat Direct Bilirubin Not Reportable 09/28/19 19:11 Neonat Indirect Bili Not Reportable 09/28/19 19:11 AST 24 U/L (14-36) 09/28/19 19:11 ALT 21 U/L (<35) 09/28/19 19:11 Alkaline Phosphatase 125 U/L (38-126) 09/28/19 19:11 Troponin I < 0.012 ng/mL 09/28/19 19:11 NT-Pro-B Natriuret Pep 97 pg/mL (<125) 09/28/19 19:11 Total Protein 8.3 g/dL (6.3-8.2) H 09/28/19 19:11 Albumin 4.6 g/dL (3.5-5.0) 09/28/19 19:11 Urine Color STRAW 09/29/19 04:03 Urine Appearance CLEAR 09/29/19 04:03 Urine pH 5.0 (5.0-9.0) 09/29/19 04:03 Ur Specific [place] 1.006 09/29/19 04:03 Urine Protein 100 mg/dL (NEGATIVE) H 09/29/19 04:03 Urine Glucose (UA) NEGATIVE mg/dL (NEGATIVE) 09/29/19 04:03 Urine Ketones NEGATIVE mg/dL (NEGATIVE) 09/29/19 04:03 Urine Blood LARGE (NEGATIVE) H 09/29/19 04:03 Urine Nitrite NEGATIVE (NEGATIVE) 09/29/19 04:03 Urine Bilirubin NEGATIVE (NEGATIVE) 09/29/19 04:03 Urine Urobilinogen NEGATIVE mg/dL (<2.0) 09/29/19 04:03 Ur Leukocyte Esterase NEGATIVE (NEGATIVE) 09/29/19 04:03 Urine WBC (Auto) 1 /HPF 09/29/19 04:03 Urine RBC (Auto) 4 /HPF 09/29/19 04:03 Squamous Epi Cells Auto <1 /HPF 09/29/19 04:03 Urine Mucus (Auto) RARE /LPF 09/29/19 04:03 Urine Ascorbic Acid NEGATIVE (NEGATIVE) 09/29/19 04:03 Slides for Path Review PATHOLOGIST REVIEWED 09/30/19 05:22 09/28/19 19:11 Troponin I < 0.012 NT-Pro-B Natriuret Pep 97 Impressions: Chest X-Ray 09/28/19 18:42 IMPRESSION: CHRONIC SCARRING IN THE LUNG BASES. POSSIBLE DEVELOPING INFILTRATE IN THE LEFT LUNG. Chest CT 09/30/19 00:00 IMPRESSION: Stable mild linear bibasilar opacities, likely atelectasis or scarring. No definite superimposed airspace disease or other evidence of acute cardiopulmonary process. Plan Plan of Treatment: Patient is discharged home in stable condition. She is advised to follow-up with her primary care provider within 1 week. She is instructed to complete her course of doxycycline for treatment of COPD with acute bronchitis. She is encouraged to avoid known respiratory triggers (dust, pollen, smoke, etc.). Take medications as prescribed. Return to the emergency department as needed for concerning symptoms Time Spent: Greater than 30 Minutes Stroke Is this a Stroke Patient?: No Acute Heart Failure - Is this a Heart Failure Patient?: No
[2019-10-04 11:45] VITALS: BP 144/92
== END 2019-10-04 12:24 | disposition home or self-care (01) | DRG 871 ==
LOC: ER 18:11 → EH 09-29 01:08 → 5 09-29 02:20
PROVIDERS: ADMIT Internal Medicine; ATTEND Internal Medicine
DX: A41.9 Sepsis, unspecified organism (principal); J18.9 Pneumonia, unspecified organism; J96.01 Acute respiratory failure with hypoxia; J44.1 Chronic obstructive pulmonary disease with (acute) exacerbation; J44.0 Chronic obstructive pulmonary disease with (acute) lower respiratory infection; F41.9 Anxiety disorder, unspecified; I10 Essential (primary) hypertension; E78.5 Hyperlipidemia, unspecified; D64.9 Anemia, unspecified; E66.9 Obesity, unspecified; F17.210 Nicotine dependence, cigarettes, uncomplicated; E78.00 Pure hypercholesterolemia, unspecified; I25.2 Old myocardial infarction; Z79.899 Other long term (current) drug therapy
CPT/HCPCS: 36415; 71046; 71260; 80048; 81001; 82803; 83605; 83880; 84484; 85025; 87040; 87070; 93005; 93010; 94640; 94667; 94668; 94799; 96361; 96374; 99291; J0692; J0696; J1644; J2930; J3490; J7030; J7060; J7512; J7620

== ENCOUNTER → 2020-02-16 | Outpatient (CLI) | payer BC ==
--- NOTE | 2020-02-16 13:51 | RADIOLOGY REPORT (SQ) ---
EXAM DESCRIPTION: CHEST PA/LATERAL IMAGES COMPLETED DATE/TIME: 02/16/2020 9:31 am REASON FOR STUDY: ASTHMA,SOB,COUGH COMPARISON: 09/28/2019 EXAM PARAMETERS: NUMBER OF VIEWS: two views TECHNIQUE: Digital Frontal and Lateral radiographic views of the chest acquired. RADIATION DOSE: NA LIMITATIONS: none FINDINGS: LUNGS AND PLEURA: Bibasilar scarring versus atelectasis. No new focal consolidation, pleu ral effusion, or pneumothorax. MEDIASTINUM AND HILAR STRUCTURES: No masses or contour abnormalities. HEART AND VASCULAR STRUCTURES: Heart normal size. No evidence for failure. BONES: No acute findings. HARDWARE: None in the chest. OTHER: No other significant finding. IMPRESSION: No evidence of acute cardiopulmonary abnormality. TECHNICAL DOCUMENTATION: JOB ID: [id number] 2010 [email or web address]- All Rights Reserved Reading location - IP/workstation name: [email or web address]
== END ==
LOC: OD 09:17
PROVIDERS: ATTEND Obstetrics & Gynecology
DX: J45.909 Unspecified asthma, uncomplicated (principal); R05 Cough; R06.02 Shortness of breath
CPT/HCPCS: 71046

== ENCOUNTER 2020-05-18 17:23 | Emergency (ER) | payer BC | END 2020-05-18 17:49 | disposition left against medical advice (07) | LOC: ER 17:23 | DX: Z53.21 Procedure and treatment not carried out due to patient leaving prior to being seen by health care provider (principal) ==

== ENCOUNTER → 2020-05-28 | Outpatient (CLI) | payer BC ==
--- NOTE | 2020-05-28 10:32 | RADIOLOGY REPORT (SQ) ---
EXAM DESCRIPTION: U/S RETROPERITON (RENAL/AORTA) IMAGES COMPLETED DATE/TIME: 05/28/2020 10:21 am REASON FOR STUDY: GROSS HEMATURIA R31.9 HEMATURIA, UNSPECIFIED COMPARISON: 09/30/2019 TECHNIQUE: Dynamic and static grayscale images acquired of the kidneys and bladder and recorded on P ACS. Additional selected color Doppler and spectral images recorded. LIMITATIONS: None. FINDINGS: RIGHT KIDNEY: Normal size measuring 12 cm. Normal echogenicity. No solid or suspicious mas ses. Scattered cysts, largest partially exophytic 4 cm cyst in the interpolar region. No hydronephr osis. No calcifications. LEFT KIDNEY: Normal size measuring 12 cm. Normal echogenicity. No solid or suspicious masses. Multi ple cysts, largest exophytic cyst within the lower pole measuring 5 cm. No hydronephrosis. No calcif ications. BLADDER: No masses. OTHER FINDINGS: Incidentally noted hepatic cysts, largest measuring 2.6 cm. IMPRESSION: 1. No hydronephrosis. No explanation for hematuria. 2. Multiple hepatic and renal cysts, largest within the left lower pole measuring 5 cm. TECHNICAL DOCUMENTATION: JOB ID: [id number] 2010 [employer]- All Rights Reserved Reading location - IP/workstation name: [email or web address]
== END ==
LOC: RAD 09:35
PROVIDERS: ATTEND Obstetrics & Gynecology
DX: R31.0 Gross hematuria (principal); Q61.02 Congenital multiple renal cysts; K76.89 Other specified diseases of liver
CPT/HCPCS: 76770

== ENCOUNTER → 2020-07-04 | Outpatient (CLI) | payer BC ==
--- NOTE | 2020-07-04 11:40 | RADIOLOGY REPORT (SQ) ---
EXAM DESCRIPTION: CHEST 2 VIEWS IMAGES COMPLETED DATE/TIME: 07/04/2020 11:30 am REASON FOR STUDY: COPD, DYSPNEA, COUGH COMPARISON: 02/16/2020 EXAM PARAMETERS: NUMBER OF VIEWS: two views TECHNIQUE: Digital Frontal and Lateral radiographic views of the chest acquired. RADIATION DOSE: NA LIMITATIONS: none FINDINGS: LUNGS AND PLEURA: Persistent linear opacification in the right base consistent with atelec tasis is a scar. There has been improvement aeration in the right base from prior study. Lung field s are otherwise clear. No effusions. No pneumothorax. MEDIASTINUM AND HILAR STRUCTURES: No masses or contour abnormalities. HEART AND VASCULAR STRUCTURES: Heart normal size. No evidence for failure. BONES: No acute findings. HARDWARE: None in the chest. OTHER: No other significant finding. IMPRESSION: Scarring versus residual linear atelectasis in the right base. No other significant fin dings. TECHNICAL DOCUMENTATION: JOB ID: [id number] 2010 [employer]- All Rights Reserved Reading location - IP/workstation name: [email or web address]
[2020-07-04 12:27] LABS: ARTERIAL BLOOD BASE EXCESS -0.4 mmol/L; ARTERIAL BLOOD H2CO3 1.37 mmol/L (1.05-1.35); ARTERIAL BLOOD HCO3 25.3 mmol/L (20-24); ARTERIAL BLOOD O2 SATURATION 88.8 % (94-98); ARTERIAL BLOOD PCO2 45.4 mmHg (35-45); ARTERIAL BLOOD PH 7.36 (7.35-7.45); ARTERIAL BLOOD PO2 57.3 mmHg (80-100); ARTERIAL BLOOD TOTAL CO2 26.7 mmol/L (21-25)
[2020-07-04 12:32] LABS: ARTERIAL BLOOD FIO2 ROOM AIR
== END ==
LOC: RAD 11:16
PROVIDERS: ATTEND Obstetrics & Gynecology
DX: J44.9 Chronic obstructive pulmonary disease, unspecified (principal); R06.00 Dyspnea, unspecified; R05 Cough
CPT/HCPCS: 71046; 82803